=== PATIENT | male | born 1940 | race Caucasian/White ===

== ENCOUNTER → 2017-08-30 11:18 | Outpatient (CLI) | payer MEDICARE, SELFPAY ==
--- NOTE | 2017-08-30 11:30 | XR_ITS ---
XR chest 2V COMPARISON: PA and lateral chest 11/29/2007 HISTORY: Cough, suspect bronchitis TECHNIQUE: PA and lateral chest FINDINGS: The lung zuniga are well expanded. There is a unusual opacity somewhat obscuring and overlying the left pulmonary artery and left heart border which was not seen on the previous chest film. There are subtle ill-defined nodular densities along the inferior left hilar region. The peripheral left lung field is clear and right lung field is clear. Overall cardiac size is normal. There are degenerative changes lower thoracic spine. IMPRESSION: Curious opacity left hilar region and partially silhouetting the left heart border which was not seen previously likely representing post inflammatory scarring. However suggest a follow-up CT scan the chest for better overall evaluation since there are no intervening chest films from 2007 until the current chest film
== END ==
PROVIDERS: PCP Family Medicine; Visit Provider Nurse Practitioner Family
DX: J40 Bronchitis, not specified as acute or chronic (principal)
CPT/HCPCS: 71046

== ENCOUNTER → 2017-09-09 09:45 | Outpatient (CLI) | payer MEDICARE, SELFPAY ==
[2017-09-09 10:14] LABS: Blood Urea Nitrogen 30 mg/dL (7-18); Estimated Glomerular Filt Rate 45 ml/min (>60); GFR (African American) 55 ML/MIN (>60)
--- NOTE | 2017-09-09 10:39 | CT_ITS ---
CT chest w con HISTORY: Cough, abnormal chest x-ray ITS.REASON: ABNORMAL CXR ORDERING PHYSICIAN: Obi Pop MD PATIENT AGE: 77 years TECHNIQUE: Axial images obtained following the administration of 75 mL of Isovue 370 . Sagittal, and coronal reformatted images are also generated and reviewed. All CT scans at the facility use one or more dose reduction, viz: automated exposure control; ma/kV adjustment per patient size (including targeted exams where dose is matched to indication; i.e. head); or iterative reconstruction technique. COMPARISON: 08/30/2017 FINDINGS: There is a left hilar mass causing obstruction/occlusion of the left upper lobe bronchus with left upper lobe collapse. It is difficult to distinguish the definite margins of the mass due to the collapsed peripheral lung. The mass is felt to measure at least 5 x 4 cm extending from the left hilum is superiorly and anteriorly. There is compensatory hyperexpansion of the left lower lobe. There are a few small areas tunnel lymph nodes. No adenopathy however apparent. No evidence of aortic aneurysm or dissection. Pulmonary arteries are not well opacified. There are coronary artery calcifications. Heart size is normal without evidence of pericardial effusion. There is hyperinflation with attenuation of peripheral pulmonary vessels consistent with obstructive chronic bronchitis There is an irregular opacity in the right apex that measures 3 cm transverse and 1 cm AP with a superior extension measuring 2 x 1.2 cm. This is flat-like in nature and may represent postinflammatory fibrotic change. Cannot exclude the possibility of neoplasm. There are no previous chest CTs available for comparison. A calcified granuloma is present in the right middle lobe. There are patchy centrilobular densities in both lower lobes with a tree in bud pattern consistent with pneumonia. Endobronchial spread of neoplasm would be an additional consideration. There is trace left effusion. Upper abdominal images show small hiatal hernia. There are degenerative changes in the thoracic spine. No bony destructive process identified. IMPRESSION: 1. 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 This is not amenable to percutaneous biopsy. Bronchoscopy suggested for further evaluation 2. Irregular opacity in the right apex which may be due to postinflammatory fibrotic change. Cannot exclude neoplasm. PET/CT may be of further value. 3. Patchy centrilobular densities in both lower lobes which may be due to pneumonia. Endobronchial spread of neoplasm is included in the differential diagnosis. Follow-up recommended
--- NOTE | 2017-09-09 10:58 | HMH.ITSHM ---
LEVOTHYROXINE, HYOSEYBMINE, NEXIUM, PROPRANOL, VITAMINE D, ANORO
== END ==
PROVIDERS: Nurse Practitioner Family; Family Provider Family Medicine; PCP Family Medicine; Visit Provider Family Medicine
DX: R91.8 Other nonspecific abnormal finding of lung field (principal)
CPT/HCPCS: 36415; 71260; 82565; 84520; Q9967

== ENCOUNTER → 2017-10-07 14:19 | Outpatient (CLI) | payer MEDICARE, SELFPAY ==
[2017-10-07 15:15] VITALS: PULSE 88
== END ==
PROVIDERS: Family Provider Family Medicine; PCP Family Medicine; Visit Provider Family Medicine
DX: J44.9 Chronic obstructive pulmonary disease, unspecified (principal); D38.1 Neoplasm of uncertain behavior of trachea, bronchus and lung
CPT/HCPCS: 94060; 94640; 94726; 94729

== ENCOUNTER 2018-03-02 10:50 | Outpatient (CLI) | payer MEDICARE, SELFPAY ==
[2018-03-02 12:15] VITALS: BP 109/64; PULSE 62; RESP 18; TEMP 36.2; O2SAT 98
[2018-03-02 12:30] VITALS: BP 116/64; PULSE 62; RESP 18
[2018-03-02 12:45] VITALS: BP 106/64; PULSE 60; RESP 18
[2018-03-02 13:00] VITALS: BP 104/61; PULSE 60; RESP 18
[2018-03-02 13:15] VITALS: BP 106/59; PULSE 55; RESP 18
[2018-03-02 13:30] VITALS: BP 123/63; PULSE 61; RESP 18
== END 2018-03-02 13:15 | disposition home or self-care (01) ==
LOC: INF 10:57
PROVIDERS: Visit Provider Internal Medicine Medical Oncology
DX: Z51.11 Encounter for antineoplastic chemotherapy (principal); C34.90 Malignant neoplasm of unspecified part of unspecified bronchus or lung
CPT/HCPCS: 96413; C9492

== ENCOUNTER 2018-03-17 11:06 | Outpatient (CLI) | payer MEDICARE, SELFPAY ==
[2018-03-17] VITALS (7 sets, daily range): BP systolic 104–122; BP diastolic 64–82; PULSE 60–66; RESP 18–20; TEMP 36.7; O2SAT 97
== END 2018-03-17 13:10 | disposition home or self-care (01) ==
LOC: INF 11:06
PROVIDERS: Visit Provider Internal Medicine Medical Oncology
DX: Z51.11 Encounter for antineoplastic chemotherapy (principal); C34.90 Malignant neoplasm of unspecified part of unspecified bronchus or lung
CPT/HCPCS: 96413; C9492

== ENCOUNTER 2018-04-01 08:55 | Outpatient (CLI) | payer MEDICARE, SELFPAY ==
[2018-04-01 09:36] VITALS: BP 124/62; PULSE 68; RESP 20; TEMP 36.9; O2SAT 96
[2018-04-01 10:00] VITALS: BP 110/70; PULSE 68; RESP 20; TEMP 36.7; O2SAT 95
[2018-04-01 10:40] VITALS: BP 112/74; PULSE 68; RESP 20; TEMP 36.9; O2SAT 95
== END 2018-04-01 10:40 | disposition home or self-care (01) ==
LOC: INF 08:55
PROVIDERS: Visit Provider Internal Medicine Medical Oncology
DX: Z51.11 Encounter for antineoplastic chemotherapy (principal); C34.92 Malignant neoplasm of unspecified part of left bronchus or lung; Z87.891 Personal history of nicotine dependence
CPT/HCPCS: 96413; C9492

== ENCOUNTER → 2018-04-13 08:41 | Outpatient (CLI) | payer MEDICARE, SELFPAY ==
--- NOTE | 2018-04-13 08:47 | CT_ITS ---
CT chest w con HISTORY: ITS.REASON: LUNG CA follow-up ORDERING PHYSICIAN: Tyrone Gan MD PhD PATIENT AGE: 78 years COMPARISON: CT chest 09/09/2017 Technique: Axial images obtained. Sagittal and coronal reformatted images are also generated and reviewed. All CT scans at the facility use one or more dose reduction, viz: automated exposure control, ma/kV adjustment per patient size (including targeted exams where dose is matched to indication, i.e. head), or iterative reconstruction technique. FINDINGS: . The left hilar mass overall is smaller as seen on coronal views. (The stretched left upper lobe vein seen on coronal 44, nicely reflects the region of the previously larger left hilar mass. Although height of left hilar mass is only slightly decreased there is been marked decrease in overall volume on these coronal images,. Previously it measured over 4 cm transverse & now measuring less than than 2 cm transverse.) This left hilar mass & pathology previously gave rise to complete collapse of the left upper lobe & obstructed the left upper lobe bronchus on the August 2017 exam.. We now see significant reexpansion of the L UL. Soft tissue Density persist superior/anterior to the left morgan and perihilar region with air bronchograms now passing through this region, but we do see air within the previously obstructed bronchus with patent bronchi reexpanding majority the left upper lobe. There is still significant density perihilar region towards left upper lobe and mainly extending down towards the anterior segments. Mild elevation major fissure persist particularly anteriorly due to the volume loss. On today's study there is progressive soft tissue density seen at posterior & inferior aspect left morgan, & leading towards LLL. With this Additional soft tissue density is now seen posterior to the left morgan & surrounding left infrahilar region today, and yielding additional central air bronchograms as they are seen extending towards left lower lobe through this additional soft tissue density. This does use some additional volume loss of the left infrahilar region. Some of the changes could be post radiation in nature. Will require follow-up This Nonspecific soft tissue mass and atelectasis centrally, perihilar region is associated with some peripheral stranding extending peripherally posterior and lateral at left midlung,.. There is also a more evident evident left pleural effusion. Small moderate-sized but clearly larger. The apical pleural scarring is seen on left appears unchanged. The density at the right apex is stable 3 cm x 1 cm and likely reflects scarring given its flat linear nature. An relatively stable appearance. Mediastinum. The mass at the left morgan extends towards the base of the left morgan. There are some moderate-sized nodes throughout the mediastinum. A slightly larger nodes subcarinal region measures up to 14 x x 20 mm height and has not changed significantly. Other scattered moderate-sized nodes mediastinum appear similar Underlying emphysematous changes. Osseous structures appear stable again noting a stable mild wedge compression fracture mid T-spine. No focal osseous lesions. No obvious supraclavicular adenopathy. Minimal wispy fluid about the heart extends anteriorly along great vessels at the insertion pericardium. Stable Uppermost abdomen. Adrenals appear stable normal size. Fatty changes in liver but no focal lesions. Spleen upper normal size. Other could be some borderline thickening of the esophagus particularly at its midportion here at the level of the left morgan. Correlation required clinically... Patient undergoing radiation therapy. IMPRESSION 1. The previously identified left hilar mass has decreased in size since August 2017. ... Improvement at left Upper
--- NOTE | 2018-04-13 09:38 | CT_ITS ---
CT abdomen pelvis w con INDICATION: ITS.REASON: LUNG CANCER.. Follow-up ORDERING PHYSICIAN: Tyrone Gan MD PhD PATIENT AGE: 78 years COMPARISON: CT abdomen pelvis from September 11, [address] chest which included the upper abdomen from 04/13/2018, 09/09/2017 . TECHNIQUE: A 75 cc Isovue-370 administered IV with helical scanning through the chest and then subsequently abdomen/pelvis surgical Axial images obtained with sagittal and coronal reformats. All CT scans at the facility use one or more dose reduction, viz: automated exposure control, ma/kV adjustment per patient size (including targeted exams where dose is matched to indication, i.e. head), or iterative reconstruction technique. FINDINGS: . LUNG BASES.. Discussed on CT chest from today. Again note left pleural effusion at left posterior sulcus.. Small pericardial effusion most evident inferior to the right heart these images. /ABDOMEN/PELVIS: Liver appears satisfactory. No focal lesions. Gallbladder unremarkable no calcified gallstones. No biliary ductal dilatation. Pancreas satisfactory and unremarkable. No lesions.. Spleen upper normal size. Adrenals. Unchanged since previous study.. Satisfactory AORTA.. Interval placement of aorto bi- iliac endograft since previous CT study 09/11/2016. It begins just below the level of SMA & inferior aspect of the renal arteries. This Endograft appears satisfactory/intact with no leakage. The proximal & distal anastomosis of appear satisfactory/&, unremarkable..The lumen of endograft filled with contrast. Concentric low-density thrombus surrounding the endograft otherwise. The Outside diameter of the underlying aortic aneurysm measuring 6.5 cm x 5 cm diameter which is very slightly less than it did on previous August 2016 study.. Certainly no larger. ThisAAA aneurysm extends for a 6.7 cm length ending just above the aortic bifurcation.. TRACT . Kidneys. Normal enhancement. Only Minimal calcified plaque at origin of both renal arteries. Ureters unremarkable. Pelvis.: Upper normal wall thickness at bladder. Prostate Moderate size measuring 5.1 cm transverse diameter. GI TRACT... No bowel dilatation nor obstruction. Large bowel. Scattered diverticuli most evident at the descending colon with tissue at sigmoid colon. No diverticulitis . Upper normal wall thickness sigmoid colon most likely reflecting lack of distention.. Minimal stool throughout entire colon. Small bowel. Unremarkable. Terminal ileum unremarkable. Appendix normal. .. Laxity at inguinal ring bilaterally. Fat-containing Left Inguinal Hernia is again noted & stable since 2017. Coronal image 29, 30 No bowel loops here. No inflammation. Associated Small fat-containing umbilical hernia Bones. No evidence of metastatic disease. Lumbar spondylosis and degenerative changes. Multilevel degenerative disc space narrowing with posterior hypertrophic ridging & Multilevel facet arthropathy. Combination of these features features are most pronounced at L4/5 & L3/4 & L2/3 yielding notable spinal stenosis along with prominent bilateral foraminal encroachment most pronounced on the right at each levels. L5/S1 with exuberant facet hypertrophy right greater than left with right foraminal and recess stenosis./ . IMPRESSION 1 . . No evidence of metastatic disease to the abdomen or pelvis. No acute findings 2.... Interval placement of aorto bi iliac endograft since August 2016.-Satisfactory appearance . This was placed to address the generous abdominal aortic aneurysm. 3. Left pleural effusion with small pericardial effusion again noted.-As were seen on CT chest from today
--- NOTE | 2018-04-13 09:46 | HMH.ITSHM ---
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 [] LEVOTHYROXIN PROPANOL NEXIUM VITAMIN D VENTOLIN ANORA
== END ==
PROVIDERS: PCP Family Medicine; Visit Provider Internal Medicine Hematology & Oncology
DX: C34.92 Malignant neoplasm of unspecified part of left bronchus or lung (principal)
CPT/HCPCS: 71260; 74177; Q9967

== ENCOUNTER 2018-04-14 11:41 | Outpatient (CLI) | payer MEDICARE, SELFPAY ==
[2018-04-14 12:25] VITALS: BP 124/74; PULSE 61; RESP 18; O2SAT 97
[2018-04-14 12:40] VITALS: BP 120/75; PULSE 60; RESP 18
[2018-04-14 12:55] VITALS: BP 121/67; PULSE 59; RESP 18
[2018-04-14 13:10] VITALS: BP 114/60; PULSE 60; RESP 18
[2018-04-14 13:25] VITALS: BP 117/60; PULSE 60; RESP 18
== END 2018-04-14 13:45 | disposition home or self-care (01) ==
LOC: INF 11:41
PROVIDERS: Visit Provider Internal Medicine Medical Oncology
DX: Z51.11 Encounter for antineoplastic chemotherapy (principal); C34.92 Malignant neoplasm of unspecified part of left bronchus or lung
CPT/HCPCS: 96413; C9492

== ENCOUNTER 2018-04-28 08:40 | Outpatient (CLI) | payer MEDICARE, SELFPAY ==
[2018-04-28 09:40] VITALS: BP 128/69; PULSE 68; RESP 18; TEMP 36.1; O2SAT 98
[2018-04-28 09:55] VITALS: BP 122/69; PULSE 64; RESP 18
[2018-04-28 10:10] VITALS: BP 126/70; PULSE 61; RESP 18
[2018-04-28 10:25] VITALS: BP 128/72; PULSE 62; RESP 18
[2018-04-28 10:40] VITALS: BP 119/72; PULSE 62; RESP 18
== END 2018-04-28 11:00 | disposition home or self-care (01) ==
LOC: INF 08:47
PROVIDERS: Visit Provider Internal Medicine Medical Oncology
DX: Z51.11 Encounter for antineoplastic chemotherapy (principal); C34.92 Malignant neoplasm of unspecified part of left bronchus or lung
CPT/HCPCS: 96413; C9492

== ENCOUNTER 2018-05-12 09:20 | Outpatient (CLI) | payer MEDICARE, SELFPAY ==
[2018-05-12] VITALS (7 sets, daily range): BP systolic 122–132; BP diastolic 69–83; PULSE 65–86; RESP 18; TEMP 36.8; O2SAT 98
== END 2018-05-12 11:52 | disposition home or self-care (01) ==
LOC: INF 09:35
PROVIDERS: Visit Provider Internal Medicine Medical Oncology
DX: Z51.11 Encounter for antineoplastic chemotherapy (principal); C34.92 Malignant neoplasm of unspecified part of left bronchus or lung
CPT/HCPCS: 96413; 96415; J9173

== ENCOUNTER 2018-05-25 08:35 | Outpatient (CLI) | payer MEDICARE, SELFPAY ==
[2018-05-25 09:25] VITALS: BP 114/67; PULSE 69; RESP 18; O2SAT 94
[2018-05-25 09:40] VITALS: BP 123/78; PULSE 66; RESP 18
[2018-05-25 09:55] VITALS: BP 127/62; PULSE 65; RESP 18
[2018-05-25 10:10] VITALS: BP 112/63; PULSE 62; RESP 18
[2018-05-25 10:25] VITALS: BP 123/63; PULSE 64; RESP 18
== END 2018-05-25 10:40 | disposition home or self-care (01) ==
LOC: INF 08:53
PROVIDERS: Visit Provider Internal Medicine Medical Oncology
DX: Z51.11 Encounter for antineoplastic chemotherapy (principal); C34.92 Malignant neoplasm of unspecified part of left bronchus or lung
CPT/HCPCS: 96413; J9173

== ENCOUNTER 2018-06-09 10:45 | Outpatient (CLI) | payer MEDICARE, SELFPAY ==
[2018-06-09 12:10] VITALS: BP 140/74; PULSE 70; RESP 18; TEMP 36.7; O2SAT 98
[2018-06-09 12:40] VITALS: BP 133/77; PULSE 69; RESP 18; O2SAT 97
[2018-06-09 13:10] VITALS: BP 142/76; PULSE 71; RESP 18; O2SAT 97
[2018-06-09 13:35] VITALS: BP 136/71; PULSE 68; RESP 18; O2SAT 98
== END 2018-06-09 13:35 | disposition home or self-care (01) ==
LOC: INF 13:04
PROVIDERS: Visit Provider Internal Medicine Medical Oncology
DX: Z51.11 Encounter for antineoplastic chemotherapy (principal); C34.92 Malignant neoplasm of unspecified part of left bronchus or lung
CPT/HCPCS: 96413; J9173

== ENCOUNTER 2018-06-23 11:30 | Outpatient (CLI) | payer MEDICARE, SELFPAY ==
[2018-06-23] VITALS (7 sets, daily range): BP systolic 105–128; BP diastolic 58–75; PULSE 58–64; RESP 18; O2SAT 95
== END 2018-06-23 13:40 | disposition home or self-care (01) ==
LOC: INF 11:39
PROVIDERS: Visit Provider Internal Medicine Medical Oncology
DX: Z51.11 Encounter for antineoplastic chemotherapy (principal); C34.92 Malignant neoplasm of unspecified part of left bronchus or lung
CPT/HCPCS: 96413; 96415; J9173

== ENCOUNTER 2018-07-06 08:50 | Outpatient (CLI) | payer MEDICARE, SELFPAY ==
[2018-07-06 09:29] VITALS: BP 99/71; PULSE 87; RESP 18; TEMP 36.6; O2SAT 100
[2018-07-06 09:59] VITALS: BP 114/70; PULSE 84; RESP 18; O2SAT 99
[2018-07-06 10:29] VITALS: BP 120/61; PULSE 64; RESP 18; O2SAT 99
[2018-07-06 10:50] VITALS: BP 119/74; PULSE 68; RESP 18; O2SAT 98
== END 2018-07-06 10:50 | disposition home or self-care (01) ==
LOC: INF 08:50
PROVIDERS: Visit Provider Internal Medicine Medical Oncology
DX: Z51.11 Encounter for antineoplastic chemotherapy (principal); C34.92 Malignant neoplasm of unspecified part of left bronchus or lung; Z87.891 Personal history of nicotine dependence
CPT/HCPCS: 96413; J9173

== ENCOUNTER → 2018-07-08 09:18 | Outpatient (CLI) | payer MEDICARE, SELFPAY ==
--- NOTE | 2018-07-08 09:22 | FL_ITS ---
EXAM: Barium swallow/esophagram. INDICATION: Difficulty swallowing ITS.REASON: mass- difficulty swallowing ORDERING PHYSICIAN: Lopez Gomez MD PATIENT AGE: 78 years COMPARISON: None TECHNIQUE: In the upright position the patient was observed to swallow barium in both the AP and lateral view. The cervical esophagus was examined under fluoroscopy with images obtained. The patient was then placed prone in the right anterior oblique position and was observed to swallow barium with Valsalva technique . FLUOROSCOPY TIME: 57 seconds FINDINGS: There was no evidence of aspiration. There was normal peristalsis. No filling defects or mucosal abnormalities. No masses or strictures. Prominent posterior vertebral body osteophytes are present at C4 C5, C6 67 and C7-T1 causing indentation upon the posterior aspect of the esophagus during swallowing. The esophagus is midline. No hiatal hernia apparent. IMPRESSION: 1. Prominent cervical osteophytes causing some indentation upon the posterior aspect of the cervical esophagus. 2. Otherwise negative barium swallow
== END ==
PROVIDERS: PCP Family Medicine; Visit Provider Otolaryngology
DX: R13.10 Dysphagia, unspecified (principal); R22.2 Localized swelling, mass and lump, trunk
CPT/HCPCS: 74220

== ENCOUNTER 2018-07-20 10:00 | Outpatient (RCR) | payer MEDICARE, SELFPAY ==
--- NOTE | 2018-07-08 13:32 | HMH.PTOPEV ---
PT Outpatient Evaluation Rehab PT Outpatient Evaluation Start: 07/08/18 13:19 Freq: Status: Active Protocol: Document 07/08/18 13:21 SULAIMAN (Rec: 07/08/18 13:32 SULAIMAN [id number]) Electronically Signed By Gustavo Miller, PT 07/08/18 13:21 Outpatient Therapy Subjective History Subjective History Pt reports insidious onset L sided neck pain beginning ~ 1 week ago. Pt reports recent CT scan of cervical spine has revealed OA, and DDD. Pt reports 'it feels like my head is too heavy for my neck'. Pt reports origin of localized s /s is just to L of midline CT junction area. Chief Complaint Pain Stiff Symptom Type Ache Sharp Dull Symptoms Relieved By Rest/Positioning Symptoms Aggravated By Physical Activity Lifting Prior Functional Limitations None Current Functional Limitations Reaching Lifting Housework Driving Sleeping Symptom Description Constant but Variable Level of pain today (0-10) 7 Pain scale - at its best (0-10) 6 Pain scale - at its worst (0-10) 9 Cervical Eval Palpation Cervical Muscles L CT Junction L Upper Trapezius Cervical/Thoracic Palpation Findings Tenderness Posture Head/C-Spine Posture Sitting Position Flexed Head/C-Spine Posture Standing Position Flexed Flexibility Deficits Upper Trapezius Muscle Length (L) Moderate Tightness Scalene Group Muscle Length (L) Mild Tightness Passive Joint Mobility Cervical PIVM Dec: R OA L OA R AA L AA R C2/3 L C2/3 R C3/4 L C3/4 R C4/5 L C4/5 R C5/6 L C5/6 R C6/7 L C6/7 R C7/T1 L C7/T1 AROM Cervical Spine Extension Active Range of 0-5 Motion (degrees) Cervical Spine Flexion A
== END 2018-07-20 10:05 | disposition home or self-care (01) ==
LOC: PT 10:00
PROVIDERS: Visit Provider Family Medicine
DX: M50.90 Cervical disc disorder, unspecified, unspecified cervical region (principal); M53.82 Other specified dorsopathies, cervical region
CPT/HCPCS: 97010; 97012; 97014; 97035; 97110; 97163; G0283

== ENCOUNTER 2018-07-21 10:20 | Outpatient (CLI) | payer MEDICARE, SELFPAY ==
[2018-07-21 11:00] VITALS: BP 102/61; PULSE 72; RESP 18; TEMP 35.8; O2SAT 91
[2018-07-21 11:15] VITALS: BP 104/64; PULSE 59; RESP 18
[2018-07-21 11:30] VITALS: BP 103/68; PULSE 64; RESP 18
[2018-07-21 11:45] VITALS: BP 110/66; PULSE 58; RESP 16
[2018-07-21 12:00] VITALS: BP 106/62; PULSE 58; RESP 16
== END 2018-07-21 12:20 | disposition home or self-care (01) ==
LOC: INF 10:20
PROVIDERS: Visit Provider Internal Medicine Medical Oncology
DX: Z51.11 Encounter for antineoplastic chemotherapy (principal); C34.92 Malignant neoplasm of unspecified part of left bronchus or lung; Z87.891 Personal history of nicotine dependence
CPT/HCPCS: 96413; J9173

== ENCOUNTER → 2018-07-22 08:27 | Outpatient (CLI) | payer MEDICARE, SELFPAY | PROVIDERS: PCP Family Medicine; Visit Provider Ophthalmology | DX: H53.2 Diplopia (principal) ==

== ENCOUNTER 2018-08-12 13:44 | Observation (INO) ==
--- NOTE | 2018-08-12 14:03 | Emergency Department Note ---
ED Disposition Clinical Impression: Diplopia Headache Qualifiers: Headache type: unspecified Headache chronicity pattern: acute headache Intractability: not intractable Qualified Code(s): R51 - Headache Disposition: Admitted as Observation Condition on Discharge: Fair Referrals: Gabriel Dickey MD [Primary Care Provider] - - Critical Care Critical Care Time: No Attestation: On 08/12/18, the high probability of a clinically significant, sudden or life threatening deterioration of the following system(s) required my full and direct attention, intervention and personal management. The time I documented below is in addition to time spent performing reported procedures but includes the following listed in this critical care notation. Medical Decision Making - Marcos Inquiry Pt receiving controlled substance: No Vital Signs: 08/12/18 13:55 08/12/18 14:28 08/12/18 14:55 Temperature 97.4 F L Temperature Source Oral Pulse Rate [Left Radial] 92 H 72 98 H Respiratory Rate 16 20 16 Blood Pressure [Right Arm] 147/86 H 144/85 H 167/101 H Blood Pressure Mean [Right Arm] 106 104 123 Blood Pressure Source [Right Arm] Automatic Cuff Automatic Cuff Blood Pressure Position [Right Arm] Sitting Sitting 02 Sat by Pulse Oximetry 98 98 97 Oxygen Delivery Method Room Air Room Air 08/12/18 15:30 Temperature Temperature Source Pulse Rate [Left Radial] 98 H Respiratory Rate 16 Blood Pressure [Right Arm] 150/100 H Blood Pressure Mean [Right Arm] 116 Blood Pressure Source [Right Arm] Automatic Cuff Blood Pressure Position [Right Arm] Sitting 02 Sat by Pulse Oximetry 98 Oxygen Delivery Method Room Air - Lab Data Lab Results 08/12/18 14:14: WBC 10.4, RBC 6.05, Hgb 16.6, Hct 48.2, MCV 79.8 L, MCH 27.5, MCHC 34.4, RDW 15.7, Plt Count 176, MPV 7.1 L, Neut % (Auto) 93.4 H, Lymph % (Auto) 5.1 L, [place] % (Auto) 1.3 L, Eos % (Auto) 0.1, Baso % (Auto) 0.1, Neut # (Auto) 9.7 H, Lymph # (Auto) 0.5 L, [place] # (Auto) 0.1, Eos # (Auto) 0.0, Baso # (Auto) 0.0, Total Counted 100, Neutrophils % (Manual) 94 H, Lymphocytes % (Manual) 4 L, Atypical Lymphs % 1.0, Monocytes % (Manual) 1 L, Platelet Estimate Normal 08/12/18 14:14: Sodium 137, Potassium 4.5, Chloride 99, Carbon Dioxide 30, Anion Gap 12.5, BUN 38 H, Creatinine 1.37 H, Estimated Creat Clear 46, Estimated GFR 50 L, Est GFR ( Amer) 61, Glucose 171 H, Calcium 10.4 H, Total Bilirubin 0.7, AST 21, ALT 36, Alkaline Phosphatase 53, Total Protein 6.6, Albumin 3.8, Globulin 2.8, Albumin/Globulin Ratio 1.4 08/12/18 14:14: TSH 5.11 H Result diagrams: 08/12/18 14:14 08/12/18 14:14 Orders (Tests/Meds): ED MEDICATIONS Generic Name Dose Route Start Last Admin Trade Name Freq PRN Reason Stop Dose Admin Sodium Chloride 10 ml 08/12/18 14:02 Saline Flush 10ml Syringe IV 09/11/18 14:01 NEEDED PRN Maintain IV Site Sodium Chloride 10 ml 08/12/18 14:02 Saline Flush 10ml Syringe IV 09/11/18 14:01 NEEDED PRN Maintain IV Site Discontinued Medications Generic Name Dose Route Start Last Admin Trade Name Freq PRN Reason Stop Dose Admin Dexamethasone Sodium Phosphate 4 mg 08/12/18 16:00 Decadron 4mg/Ml 1ml Vial IV 09/11/18 15:59 Q12H LEENA Morphine Sulfate 2 mg 08/12/18 14:53 08/12/18 15:00 Morphine 2mg/Ml Syringe IV 08/12/18 14:54 2 mg ONCE ONE Administration Ondansetron HCl 4 mg 08/12/18 14:53 08/12/18 15:00 Zofran 4mg/2ml Vial IV 08/12/18 14:54 4 mg ONCE ONE Administration - Radiology Data #1 Image(s): Chest Image Reviewed: Yes I have reviewed radiologist's interpretation IMPRESSION: No change in the left hilar mass with postobstructive changes with no acute finding Dictated By: Juliano Adams MD Signed By: <Electronically signed by Juliano Adams MD in [place]> 08/12/18 1442 - CT Data CT Scan: Head Time Received: 15:[address] Reviewed: Yes: I have viewed the radiologist's interpretation Preliminary Findings: Normal/NAD - ECG Data Tracing #1 EKG interpreted by Bernard Hughes MD: Rhythm: sinus Rate: [employer]: Left Ectopy: Premature atrial contractions Conduction: normal ST Segment Changes: none T Wave Changes: none Q Waves: Septal No evidence of acute ischemia or injury Baseline artifact present, but I consider the EKG adequate for accurate interpretation. Prior electrocardiagrams reviewed. No change from prior tracings. - Physician Consults Physician Consulted: Noble Time: 15:44 Reason -: Pt condition Comment/Response: Dr. Dickey states patient has been complaining of his head "feeling big" ever since he started having his neck problems. Use oxycodone and diazepam as needed for headaches. Follow-up in the office next week. Continue same dose of thyroid replacement. Medical Decision Narrative: 3:45 PM: Discussed Dr. Dickey's recommendations. Patient's tells me that he does not think he can go home. States whenever he sits up or stands up his head feels like it is "big" and his headache comes back. Discussed trying to go home and lay in bed in a darkened room and he tells me he just does not think he can do that. 3:51 PM: Discussed with Dr. Dickey again. Admit observation. Decadron 4 mg every 12 hours. Continue pain medication. 3:57 PM: Discussed plan with patient and . They state that the patient is already on steroids prescribed by his oncologist. He is on a taper. He is currently on 50 mg of prednisone per day. Therefore, will not administer Decadron. General Adult HPI - General Chief complaint: Weakness Stated complaint: dizzy, seeing double, head pain Time Seen by Provider: 08/12/18 14:10 Mode of Arrival: Ambulatory Limitations: No Limitations Description of Symptoms (Recalled from ER Triage Doc. by RN): to ed per pvt car with c/o generalized weakness, generalized headache, double vision, unsteady gait. starting today. pt states worse h/a he has ever had. pt denies any photophobia, n/v. - History of Present Illness HPI narrative: Complains of headache that began about 9:00 this morning. Started out as a frontal headache. Then feel like it is "big". States currently he does not have a headache. He took oxycodone at home for the headache, initially only got a little relief, but as noted denying headache now. States he is also felt unstable of gait and is having "a little vision problem". He has had intermittent diplopia for a couple of months. The diplopia is side by side (lat eral). He has been seen by ophthalmology. No cause was found. He has been referred to neuro-ophthalmology. He also has had problems swallowing for a couple of months and has been referred to a neurosurgeon because of bone spurs in his neck. He recently had an MRI of his brain and soft tissue neck, ordered by his radiation oncologist, because of the above-noted complaints. These were done on 08/09/18. Reported to be negative except for bone spurs in the neck, no cranial metastases. The patient has lung cancer diagnosed last October. He underwent chemotherapy, radiation therapy, and immunotherapy. He recently had to stop immunotherapy because of side effects. He also recently had his dose of thyroid medication increased. - Related Data Home Medications Medication Instructions Recorded Confirmed Levothyroxine Sodium 50 mcg PO DAILY 09/27/17 08/12/18 [Levothyroxine 50mcg (0.05mg) Tab] Propranolol HCl 40 mg PO DAILY 09/27/17 08/12/18 albuterol sulfate HFA 90 1 puff INHALATION Q6H PRN 02/17/18 08/12/18 mcg/actuation aerosol inhaler Naproxen Sodium [Aleve 220mg Cap] 220 mg PO DAILY 04/14/18 08/12/18 Oxycodone HCl [Oxycodone (IR) 10mg 10 mg PO NEEDED PRN 07/06/18 08/12/18 Tab] diazePAM [Valium 10mg tablet] 10 mg PO NEEDED PRN 07/06/18 08/12/18 Lansoprazole [Prevacid] 30 mg PO DAILY 07/21/18 08/12/18 Umeclidinium Brm/Vilanterol Tr 1 inh IH DAILY 07/21/18 08/12/18 [Anoro Ellipta 62.5-25 Mcg INH] Metoclopramide HCl [Reglan 5mg 5 mg PO BID 08/12/18 08/12/18 Tablet] Allergies Allergy/AdvReac Type Severity Reaction Status Date / Time No Known Allergies Allergy Verified 07/21/18 09:38 [facility] History - Hepatitis A Screen Drug use history?: No High risk sexual behaviors?: No History of sexually transmitted infection?: No Currently employed?: No Childcare worker?: No Do you have indoor plumbing?: Yes Do you have electricity?: Yes Attestation statement:: This patient has been screened for Hepatitis A risk factors. I have reviewed the patient's past medical history: Yes Medical History: Reports:: Chronic Obstructive Pulmonary Disease (COPD) Denies:: Diabetes Mellitus Type 1, Diabetes Mellitus Type 2 Other Medical History: Reports: Other Comment: hx lung cancer Other Surgeries: Yes: Coronary Stent Amputation: No Fractures: No - Social History Smoking Status: Former smoker Alcohol Intake: never Substance Use Type: denies use Occupational Status: employed Household Members: other - Psychiatric History Expresses thoughts of harming self/others: None Suicide Plan Description: No Plan Family Hx:: Hyperlipidemia, Hypertension ROS Obtained: Yes All systems reviewed & no additional complaints - Constitutional Constitutional: Denies fever(s) - Eyes Eyes: Reports diplopia - Cardiovascular Cardiovascular: Denies chest pain - Respiratory Respiratory: No dyspnea - Gastrointestinal Gastrointestingal: Reports: dysphagia - Musculoskeletal Musculoskeletal: Reports neck pain (Chronic) - Neurologic Neurologic: Reports unsteadiness, Reports headache(s) Physical Exam - General General appearance: alert, in no apparent distress - Head Head exam: atraumatic, normocephalic - Eye Eye exam: Present: PERRL, EOMI - ENT ENT exam: Present: normal exam, mucous membranes moist - Neck Neck exam: Present: normal inspection, trachea midline - Chest Chest inspection: Present: normal inspection, symmetric chest wall rise - Respiratory Respiratory exam: Present: normal lung sounds bilaterally. Absent: respiratory distress - Cardiovascular Cardiovascular exam: Present: regular rate, normal rhythm, normal heart sounds - Abdominal Exam Abdominal exam: Present: soft. Absent: distention, tenderness - Extremities Exam Extremities exam: Present: normal inspection, other (Normal peripheral pulses) - Neurological Exam Neurological exam: Present: alert, oriented X3, CN II-XII intact. Absent: motor sensory deficit - Psychiatric Psychiatric exam: Present: normal affect, normal mood - Skin Skin exam: Present: warm, dry
[2018-08-12 14:28] LABS: Basophils % 0.1 % (0.1-2.0); Eosinophils % 0.1 % (0.1-12.0); Hematocrit 48.2 % (42.0-52.0); Hemoglobin 16.6 g/dL (14.1-18.0); Lymphocytes # 0.5 K/mm3 (0.7-4.5); Lymphocytes % 5.1 % (10-50); Mean Corpuscular HGB Conc 34.4 g/dL (31.8-35.4); Mean Corpuscular Hemoglobin 27.5 pg (27.0-31.2); Mean Corpuscular Volume 79.8 fl (80-94); Mean Platelet Volume 7.1 fl (7.4-10.4); Monocytes # 0.1 K/mm3 (0.1-1.0); Monocytes % 1.3 % (1.7-9.3); Neutrophils # 9.7 K/mm3 (1.8-7.8); Neutrophils % 93.4 % (37.0-80.0); Platelet Count 176 K/mm3 (142-424); Red Blood Count 6.05 M/mm3 (4.60-6.20); Red Cell Distribution Width 15.7 % (11.5-17.5); White Blood Count 10.4 K/mm3 (4.8-10.8)
[2018-08-12 14:32] LABS: Albumin Level 3.8 gm/dL (3.4-5.0); Albumin/Globulin Ratio 1.4 (1.1-1.8); Anion Gap 12.5 mEq/L (5-15); Bilirubin,Total 0.7 mg/dL (0.2-1.0); Calcium 10.4 mg/dL (8.5-10.1); Globulin 2.8 gm/dl (1.3-3.2); Potassium 4.5 mmoL/L (3.5-5.1); Total Protein,Serum 6.6 gm/dL (6.4-8.2)
[2018-08-12 14:52] LABS: Lymphocytes % 4 % (10-50); Monocytes % 1 % (2-9); Neutrophils % 94 % (42-76); Total Cells Counted 100
--- NOTE | 2018-08-12 16:22 | History & Physical Report ---
*Admission Date: 08/12/18 <Tiffanie Medina - 08/12/18 16:22> *Chief complaint: headache, dizziness <Tiffanie Medina - 08/12/18 16:22> *History of present illness: Mr. Morris is a 78yo male with a history of lung cancer which was diagnosed in January 2018, esophageal reflux, COPD, and esophageal dysphasia who has complained of his head "feeling big" for the past month and a half. The patient began having neck pain in June with headaches. He was seen in the emergency room at that time and a CT scan of the C-spine was abnormal showing cervical disc disease and cervical spinal stenosis. Dr. Dickey started him on some diazepam as well as some dexamethasone. He then had physical therapy for his neck pain. He began having episodes of dysphasia and was sent to Dr. Gomez. He currently has an appointment with a neurosurgeon on Wednesday. He thought initially the headaches and the dizziness were a side effect from his immunotherapy that he was receiving for his lung cancer. His oncologist stopped the immunotherapy approximately a month ago, but his symptoms have continued. He states that he began with a frontal headache this morning around 10 AM. He presented to the ER when it was not better by 2 PM. He states the ER physician gave him some morphine and the headache itself improved, but he continued to feel like his head was "big" and he was dizzy upon standing. He had a head CT which showed nothing acute and Dr. Dickey and the ER physician felt he could be discharged home, however the patient did not think he could go home. He stated whenever he stood up his headache came back. He was therefore admitted for observation. The ER physician was going to start the patient on Decadron, however his stated he was already on steroids prescribed by his oncologist and was on a taper at 50 mg of prednisone per day, therefore Decadron was not administered. <Tiffanie Medina - 08/12/18 17:04> [facility] History I have reviewed the patient's past medical history: Yes <Tiffanie Medina - 08/12/18 17:04> Medical History: Reports:: Aneurysm (AAA with stent placement), Cancer (lung), Chronic Obstructive Pulmonary Disease (COPD), Gastroesophageal Reflux Disease(GERD) Denies:: Diabetes Mellitus Type 1, Diabetes Mellitus Type 2 <Tiffanie Medina 08/12/18 17:04> *Have you ever received a pneumonia vaccine?: Yes <Tiffanie Medina 08/12/18 16:22> Other Medical History: Reports: Other <Tiffanie Medina 08/12/18 16:22> Other Surgeries: Yes: Coronary Stent, Other (AAA - stent, Cyst removed right arm, Chemo for Lung CA) <Tiffanie Medina 08/12/18 17:04> Amputation: No <Tiffanie Medina 08/12/18 16:22> Fractures: No <Tiffanie Medina 08/12/18 16:22> - *Social History Smoking Status: Former smoker <Tiffanie Medina 08/12/18 16:22> Alcohol Intake: never <Tiffanie Medina 08/12/18 16:22> Substance Use Type: denies use <Tiffanie Medina 08/12/18 16:22> *Occupational Status:: employed <Tiffanie Medina 08/12/18 16:22> Household Members: other <Tiffanie Medina 08/12/18 16:22> *Travel in the last 8 weeks: None <Tiffanie Medina 08/12/18 16:22> - Psychiatric History Expresses thoughts of harming self/others: None <Tiffanie Medina 08/12/18 16:22> Suicide Plan Description: No Plan <Tiffanie Medina 08/12/18 16:22> Family Hx:: Hyperlipidemia, Hypertension <Tiffanie Medina 08/12/18 16:22> Review of Systems - Constitutional Reports fatigue, Reports weakness <Tiffanie Medina 08/12/18 17:04> - Eyes Reports double vision, Denies blurry vision <Tiffanie Medina 08/12/18 17:04> - ENT Reports dry mouth, Denies nasal congestion, Denies sore throat <Tiffanie Medina 08/12/18 17:04> - *Cardiovascular Reports shortness of breath, Denies chest pain, Denies rapid, pounding, or irregular heartbeat <Tiffanie Medina 08/12/18 17:04> - *Respiratory Reports shortness of breath, Denies cough <Tiffanie Medina 08/12/18 17:04> - *Gastrointestinal Reports constipation, Reports nausea, Denies abdominal pain, Denies loose stools, Denies vomiting <Tiffanie Medina - 08/12/18 17:04> - *Genitourinary Denies difficulty urinating, Denies painful urination <Tiffanie Medina - 08/12/18 17:04> - *Musculoskeletal Reports neck pain, Denies joint pain <Tiffanie Medina 08/12/18 17:04> - *Neurologic Reports unsteadiness, Reports headache(s), Reports dizziness, Reports weakness <Tiffanie Medina - 08/12/18 17:04> Meds Home Medications Medication Instructions Recorded Confirmed Type Levothyroxine Sodium 100 mcg PO DAILY 09/27/17 08/12/18 History [Levothyroxine 50mcg (0.05mg) Tab] Propranolol HCl 40 mg PO DAILY 09/27/17 08/12/18 History albuterol sulfate HFA 90 1 puff INHALATION Q6H PRN 02/17/18 08/12/18 History mcg/actuation aerosol inhaler Oxycodone HCl [Oxycodone (IR) 10mg 10 mg PO NEEDED PRN 07/06/18 08/12/18 History Tab] diazePAM [Valium 10mg tablet] 4 mg PO NEEDED PRN 07/06/18 08/12/18 History Lansoprazole [Prevacid] 30 mg PO DAILY 07/21/18 08/12/18 History Umeclidinium Brm/Vilanterol Tr 1 inh IH DAILY 07/21/18 08/12/18 History [Anoro Ellipta 62.5-25 Mcg INH] Metoclopramide HCl [Reglan 5mg 5 mg PO BID 08/12/18 08/12/18 History Tablet] Polyethylene Glycol 3350 [Miralax 17 gm PO DAILY 08/12/18 08/12/18 History 17gm Packet] predniSONE [Deltasone 20mg 20 mg PO DIRECTED 08/12/18 08/12/18 History tablet] <Gabriel Dickey - 08/12/18 18:18> Allergies Allergy/AdvReac Type Severity Reaction Status Date / Time No Known Allergies Allergy Verified 07/21/18 09:38 <Gabriel Dickey - 08/12/18 18:18> Exam Vital signs and Labs for Last 24 Hours: Temp Pulse Resp BP Pulse Ox 97.6 F 79 17 139/93 H 973 H 08/12/18 17:42 08/12/18 17:42 08/12/18 17:42 08/12/18 17:42 08/12/18 17:42 Laboratory Results - last 24 hr 08/12/18 14:14: WBC 10.4, RBC 6.05, Hgb 16.6, Hct 48.2, MCV 79.8 L, MCH 27.5, MCHC 34.4, RDW 15.7, Plt Count 176, MPV 7.1 L, Neut % (Auto) 93.4 H, Lymph % (Auto) 5.1 L, [place] % (Auto) 1.3 L, Eos % (Auto) 0.1, Baso % (Auto) 0.1, Neut # (Auto) 9.7 H, Lymph # (Auto) 0.5 L, [place] # (Auto) 0.1, Eos # (Auto) 0.0, Baso # (Auto) 0.0, Total Counted 100, Neutrophils % (Manual) 94 H, Lymphocytes % (Manual) 4 L, Atypical Lymphs % 1.0, Monocytes % (Manual) 1 L, Platelet Estimate Normal 08/12/18 14:14: Sodium 137, Potassium 4.5, Chloride 99, Carbon Dioxide 30, Anion Gap 12.5, BUN 38 H, Creatinine 1.37 H, Estimated Creat Clear 46, Estimated GFR 50 L, Est GFR ( Amer) 61, Glucose 171 H, Calcium 10.4 H, Total Bilirubin 0.7, AST 21, ALT 36, Alkaline Phosphatase 53, Total Protein 6.6, Albumin 3.8, Globulin 2.8, Albumin/Globulin Ratio 1.4 08/12/18 14:14: TSH 5.11 H <Gabriel Dickey - 08/12/18 18:18> Temp Pulse Resp BP Pulse Ox 97.4 F L 98 H 16 150/100 H 98 08/12/18 13:55 08/12/18 15:30 08/12/18 15:30 08/12/18 15:30 08/12/18 15:30 Laboratory Results - last 24 hr 08/12/18 14:14: WBC 10.4, RBC 6.05, Hgb 16.6, Hct 48.2, MCV 79.8 L, MCH 27.5, MCHC 34.4, RDW 15.7, Plt Count 176, MPV 7.1 L, Neut % (Auto) 93.4 H, Lymph % (Auto) 5.1 L, [place] % (Auto) 1.3 L, Eos % (Auto) 0.1, Baso % (Auto) 0.1, Neut # (Auto) 9.7 H, Lymph # (Auto) 0.5 L, [place] # (Auto) 0.1, Eos # (Auto) 0.0, Baso # (Auto) 0.0, Total Counted 100, Neutrophils % (Manual) 94 H, Lymphocytes % (Manual) 4 L, Atypical Lymphs % 1.0, Monocytes % (Manual) 1 L, Platelet Estimate Normal 08/12/18 14:14: Sodium 137, Potassium 4.5, Chloride 99, Carbon Dioxide 30, Anion Gap 12.5, BUN 38 H, Creatinine 1.37 H, Estimated Creat Clear 46, Estimated GFR 50 L, Est GFR ( Amer) 61, Glucose 171 H, Calcium 10.4 H, Total Bilirubin 0.7, AST 21, ALT 36, Alkaline Phosphatase 53, Total Protein 6.6, Albumin 3.8, Globulin 2.8, Albumin/Globulin Ratio 1.4 08/12/18 14:14: TSH 5.11 H <Tiffanie Medina - 08/12/18 16:22> I & O for Last 24 hours: Intake & Output 08/09/18 08/10/18 08/11/18 08/12/18 23:59 23:59 23:59 23:59 Intake Total 360 / 360 Balance 360 / 360 Weight 163 lb 4 oz <Gabriel Dickey - 08/12/18 18:18> Intake & Output 08/10/18 08/11/18 08/12/18 08/13/18 11:59 11:59 11:59 11:59 Weight 163 lb <Tiffanie Medina - 08/12/18 16:22> - Constitutional no acute distress <Tiffanie Medina - 08/12/18 17:04> - *Routine HEENT Exam Head: Present: normocephalic <Tiffanie Medina 08/12/18 17:04> Eye: Present: EOMI, PERRL [facility] 08/12/18 17:04> ENT: Present: mucous membranes dry [facility] 08/12/18 17:04> - *Routine Neck Exam Present: supple. Absent: lymphadenopathy <[facility] 08/12/18 17:04> - *Routine Respiratory Exam Present: wheezes (bilateral) [facility] 08/12/18 17:04> - *Routine Cardiovascular Exam Present: RRR, irregular rhythm <[facility] 08/12/18 17:04> - *Routine Abdominal Exam Present: soft, normoactive bowel sounds. Absent: tenderness <[facility] 08/12/18 17:04> - *Routine Extremities Exam Absent: cyanosis, clubbing, edema <[facility] 08/12/18 17:04> - *Routine Skin Exam Present: warm. Absent: rash <[facility] 08/12/18 17:04> - *Routine Neurological Exam Present: alert, oriented X3, CN II-XII intact. Absent: altered mental status <[facility] 08/12/18 17:04> H&P: Result - Impressions Head CT - normal CXR - no change in lung mass on the left <[facility] 08/12/18 17:04> Assessment and Plan (1) Headache Current visit: Yes Status: Acute Qualifiers: Headache type: unspecified Headache chronicity pattern: acute headache Intractability: not intractable Qualified Code(s): R51 - Headache Category: Medical Code(s): R51 - Headache (2) Diplopia Current visit: Yes Status: Acute Category: Medical Code(s): H53.2 - Diplopia (3) Degenerative disc disease, cervical Current visit: No Status: Chronic Category: Medical Code(s): M50.30 - Other cervical disc degeneration, unspecified cervical region (4) Dysphagia Current visit: No Status: Chronic Qualifiers: Dysphagia type: esophageal phase Qualified Code(s): R13.10 - Dysphagia, unspecified Category: Medical Code(s): R13.10 - Dysphagia, unspecified (5) Dyspnea Current visit: No Status: Chronic Category: Medical Code(s): R06.00 - Dyspnea, unspecified (6) Hx of cancer of lung Current visit: No Status: Acute Category: Medical Code(s): Z85.118 - Personal history of other malignant neoplasm of bronchus and lung (7) Hypothyroidism Current visit: No Status: Acute Category: Medical Code(s): E03.9 - Hypothyroidism, unspecified (8) Reflux esophagitis Current visit: No Status: Chronic Category: Medical Code(s): K21.0 - Gastro-esophageal reflux disease with esophagitis (9) Renal insufficiency Current visit: No Status: Acute Category: Medical Code(s): N28.9 - Disorder of kidney and ureter, unspecified (10) Hypertension Current visit: Yes Status: Chronic Category: Medical Code(s): I10 - Essential (primary) hypertension (11) Cardiac dysrhythmia Current visit: Yes Status: Acute Category: Medical Code(s): I49.9 - Cardiac arrhythmia, unspecified <Gabriel Dickey - 08/12/18 18:18> (1) Headache Current visit: Yes Status: Acute Qualifiers: Headache type: unspecified Headache chronicity pattern: acute headache Intractability: not intractable Qualified Code(s): R51 - Headache Category: Medical Code(s): R51 - Headache (2) Diplopia Current visit: Yes Status: Acute Category: Medical Code(s): H53.2 - Diplopia (3) Degenerative disc disease, cervical Current visit: No Status: Chronic Category: Medical Code(s): M50.30 - Other cervical disc degeneration, unspecified cervical region (4) Dysphagia Current visit: No Status: Chronic Qualifiers: Dysphagia type: esophageal phase Qualified Code(s): R13.10 - Dysphagia, unspecified Category: Medical Code(s): R13.10 - Dysphagia, unspecified (5) Dyspnea Current visit: No Status: Chronic Category: Medical Code(s): R06.00 - Dyspnea, unspecified (6) Hx of cancer of lung Current visit: No Status: Acute Category: Medical Code(s): Z85.118 - Personal history of other malignant neoplasm of bronchus and lung (7) Hypothyroidism Current visit: No Status: Acute Category: Medical Code(s): E03.9 - Hypothyroidism, unspecified (8) Reflux esophagitis Current visit: No Status: Chronic Category: Medical Code(s): K21.0 - Gastro-esophageal reflux disease with esophagitis (9) Renal insufficiency Current visit: No Status: Acute Category: Medical Code(s): N28.9 - Disorder of kidney and ureter, unspecified (10) Hypertension Current visit: Yes Status: Chronic Category: Medical Code(s): I10 - Essential (primary) hypertension (11) Cardiac dysrhythmia Current visit: Yes Status: Acute Category: Medical Code(s): I49.9 - Cardiac arrhythmia, unspecified <Tiffanie Medina - 08/12/18 16:24> - Assessment and plan all Dx Assessment and Plan for all problems:: Saw patient, agree with above note. <Gabriel Dickey - 08/12/18 18:18> Will start on IVF's d/t renal insufficiency. Will start on an increased dose of his propranolol for headache as well as hypertension. Will monitor overnight and place a rn cardiac cath due to cardiac dysrhythmia. Will also start on some of his home medications. <Tiffanie Medina - 08/12/18 17:04>
[2018-08-13 06:17] LABS: Basophils % 0.1 % (0.1-2.0); Lymphocytes % 13.6 % (10-50); Mean Corpuscular HGB Conc 33.4 g/dL (31.8-35.4); Monocytes # 0.5 K/mm3 (0.1-1.0)
[2018-08-13 06:34] LABS: Eosinophils % 0.3 % (0.1-12.0); Hematocrit 44.1 % (42.0-52.0); Lymphocytes # 1.2 K/mm3 (0.7-4.5); Mean Corpuscular Volume 80.8 fl (80-94); Mean Platelet Volume 7.1 fl (7.4-10.4); Neutrophils # 7.4 K/mm3 (1.8-7.8); Platelet Count 163 K/mm3 (142-424); Red Blood Count 5.45 M/mm3 (4.60-6.20); Red Cell Distribution Width 15.7 % (11.5-17.5); White Blood Count 9.1 K/mm3 (4.8-10.8)
[2018-08-13 06:38] LABS: Hemoglobin 14.7 g/dL (14.1-18.0)
[2018-08-13 06:43] LABS: Anion Gap 8.5 mEq/L (5-15); Calcium 9.5 mg/dL (8.5-10.1); Potassium 5.5 mmoL/L (3.5-5.1)
--- NOTE | 2018-08-13 07:11 | Progress Note ---
Internal Medicine - PN: Subj *Date: 08/13/18 *Time: 07:09 Interval history: Pt feels better today, less headache now. Exam Vital signs and Labs for Last 24 Hours: Temp Pulse Resp BP Pulse Ox 97.5 F L 55 L 57 H 115/78 97 08/13/18 04:00 08/13/18 06:38 08/13/18 04:00 08/13/18 04:00 08/13/18 06:38 Laboratory Results - last 24 hr 08/12/18 14:14: WBC 10.4, RBC 6.05, Hgb 16.6, Hct 48.2, MCV 79.8 L, MCH 27.5, MCHC 34.4, RDW 15.7, Plt Count 176, MPV 7.1 L, Neut % (Auto) 93.4 H, Lymph % (Auto) 5.1 L, [place] % (Auto) 1.3 L, Eos % (Auto) 0.1, Baso % (Auto) 0.1, Neut # (Auto) 9.7 H, Lymph # (Auto) 0.5 L, [place] # (Auto) 0.1, Eos # (Auto) 0.0, Baso # (Auto) 0.0, Total Counted 100, Neutrophils % (Manual) 94 H, Lymphocytes % (Manual) 4 L, Atypical Lymphs % 1.0, Monocytes % (Manual) 1 L, Platelet Estimate Normal 08/12/18 14:14: Sodium 137, Potassium 4.5, Chloride 99, Carbon Dioxide 30, Anion Gap 12.5, BUN 38 H, Creatinine 1.37 H, Estimated Creat Clear 46, Estimated GFR 50 L, Est GFR ( Amer) 61, Glucose 171 H, Calcium 10.4 H, Total Bilirubin 0.7, AST 21, ALT 36, Alkaline Phosphatase 53, Total Protein 6.6, Albumin 3.8, Globulin 2.8, Albumin/Globulin Ratio 1.4 08/12/18 14:14: TSH 5.11 H 08/13/18 05:40: WBC 9.1, RBC 5.45, Hgb 14.7 D, Hct 44.1, MCV 80.8, MCH 27.0, MCHC 33.4, RDW 15.7, Plt Count 163, MPV 7.1 L, Neut % (Auto) 81.0 H, Lymph % (Auto) 13.6, [place] % (Auto) 5.0, Eos % (Auto) 0.3, Baso % (Auto) 0.1, Neut # (Auto) 7.4, Lymph # (Auto) 1.2, [place] # (Auto) 0.5, Eos # (Auto) 0.0, Baso # (Auto) 0.0 08/13/18 05:40: Sodium 140, Potassium 5.5 H D, Chloride 103, Carbon Dioxide 34 H , Anion Gap 8.5, BUN 31 H, Creatinine 1.23, Estimated Creat Clear 52, Estimated GFR 57 L, Est GFR ( Amer) 69, Glucose 113 H D, Calcium 9.5 I & O for Last 24 hours: Intake & Output 08/10/18 08/11/18 08/12/18 08/13/18 23:59 23:59 23:59 23:59 Intake Total 360 / 360 1211 / 1211 Balance 360 / 360 1211 / 1211 Weight 163 lb 4 oz 163 lb 2 oz - Constitutional no acute distress - *Routine HEENT Exam Head: Present: normocephalic Eye: Present: EOMI ENT: Present: mucous membranes moist - *Routine Neck Exam Present: supple. Absent: lymphadenopathy - *Routine Respiratory Exam Comments: good air movement, few left upper coarse breath sounds - *Routine Cardiovascular Exam Present: RRR - *Routine Abdominal Exam Present: soft, normoactive bowel sounds. Absent: tenderness - *Routine Extremities Exam Absent: cyanosis, clubbing, edema - *Routine Skin Exam Present: warm. Absent: rash - *Routine Neurological Exam Present: alert, oriented X3 Assessment and Plan (1) Headache Current visit: Yes Status: Acute Qualifiers: Headache type: unspecified Headache chronicity pattern: acute headache Intractability: not intractable Qualified Code(s): R51 - Headache Category: Medical Code(s): R51 - Headache (2) Diplopia Current visit: Yes Status: Acute Category: Medical Code(s): H53.2 - Diplopia (3) Degenerative disc disease, cervical Current visit: No Status: Chronic Category: Medical Code(s): M50.30 - Other cervical disc degeneration, unspecified cervical region (4) Dysphagia Current visit: No Status: Chronic Qualifiers: Dysphagia type: esophageal phase Qualified Code(s): R13.10 - Dysphagia, unspecified Category: Medical Code(s): R13.10 - Dysphagia, unspecified (5) Dyspnea Current visit: No Status: Chronic Category: Medical Code(s): R06.00 - Dyspnea, unspecified (6) Hx of cancer of lung Current visit: No Status: Acute Category: Medical Code(s): Z85.118 - Personal history of other malignant neoplasm of bronchus and lung (7) Hypothyroidism Current visit: No Status: Acute Category: Medical Code(s): E03.9 - Hypothyroidism, unspecified (8) Reflux esophagitis Current visit: No Status: Chronic Category: Medical Code(s): K21.0 - Gastro-esophageal reflux disease with esophagitis (9) Renal insufficiency Current visit: No Status: Acute Category: Medical Code(s): N28.9 - Disorder of kidney and ureter, unspecified (10) Hypertension Current visit: Yes Status: Chronic Category: Medical Code(s): I10 - Essential (primary) hypertension (11) Cardiac dysrhythmia Current visit: Yes Status: Acute Category: Medical Code(s): I49.9 - Cardiac arrhythmia, unspecified - Assessment and plan all Dx Assessment and Plan for all problems:: Improving, will decrease IVF rate today.
--- NOTE | 2018-08-13 11:11 | Pharmacy Consult Notes ---
[facility] Pharmacy VTE Monitoring - Patient Demographics Admission date: 08/13/18 Report Date: 08/13/18 Time: 11:10 Allergies/Adverse Reactions: Patient Allergies No Known Allergies Allergy (Verified 07/21/18 09:38) Height: 1.83 m Weight: 73.992 kg Patient Problems: Current Active Problems Headache (Acute) Diplopia (Acute) Hypertension (Chronic) Cardiac dysrhythmia (Acute) - VTE Risk Labs: VTE Related Lab Results Hgb 14.7 g/dL (14.1-18.0) D 08/13/18 05:40 Hct 44.1 % (42.0-52.0) 08/13/18 05:40 Plt Count 163 K/mm3 (142-424) 08/13/18 05:40 BUN 31 mg/dL (7-18) H 08/13/18 05:40 Creatinine 1.23 mg/dL (0.70-1.30) 08/13/18 05:40 Estimated Creat Clear 52 mL/min (50-200) 08/13/18 05:40 Was VTE Risk Assessment Performed: Yes VTE Score: 5 VTE Risk Level: Low Risk - Prophylaxis Types of VTE Prophylaxis: TEDS Knee High (IESHA HOSE ORDERED)
[2018-08-14 06:21] LABS: Basophils % 0.1 % (0.1-2.0); Eosinophils % 0.2 % (0.1-12.0); Hematocrit 43.8 % (42.0-52.0); Hemoglobin 14.7 g/dL (14.1-18.0); Lymphocytes # 1.3 K/mm3 (0.7-4.5); Mean Corpuscular HGB Conc 33.6 g/dL (31.8-35.4); Mean Corpuscular Hemoglobin 27.2 pg (27.0-31.2); Mean Platelet Volume 6.8 fl (7.4-10.4); Monocytes # 0.4 K/mm3 (0.1-1.0); Monocytes % 5.1 % (1.7-9.3); Neutrophils # 6.9 K/mm3 (1.8-7.8); Neutrophils % 79.6 % (37.0-80.0); Platelet Count 145 K/mm3 (142-424); Red Blood Count 5.41 M/mm3 (4.60-6.20); Red Cell Distribution Width 15.8 % (11.5-17.5); White Blood Count 8.7 K/mm3 (4.8-10.8)
[2018-08-14 06:29] LABS: Anion Gap 7.4 mEq/L (5-15); Potassium 5.4 mmoL/L (3.5-5.1)
--- NOTE | 2018-08-14 09:37 | Progress Note ---
Internal Medicine - PN: Subj *Date: 08/14/18 *Time: 09:35 Interval history: Patient feels much better today, no headache now. He has been up walking in his room and wants to go home. Exam Vital signs and Labs for Last 24 Hours: Temp Pulse Resp BP Pulse Ox 98.2 F 62 17 118/68 93 L 08/14/18 08:00 08/14/18 08:00 08/14/18 08:00 08/14/18 08:00 08/14/18 08:00 Laboratory Results - last 24 hr 08/14/18 05:35: WBC 8.7, RBC 5.41, Hgb 14.7, Hct 43.8, MCV 81.0, MCH 27.2, MCHC 33.6, RDW 15.8, Plt Count 145, MPV 6.8 L, Neut % (Auto) 79.6, Lymph % (Auto) 15.0, [place] % (Auto) 5.1, Eos % (Auto) 0.2, Baso % (Auto) 0.1, Neut # (Auto) 6.9, Lymph # (Auto) 1.3, [place] # (Auto) 0.4, Eos # (Auto) 0.0, Baso # (Auto) 0.0 08/14/18 05:35: Sodium 140, Potassium 5.4 H, Chloride 104, Carbon Dioxide 34 H, Anion Gap 7.4, BUN 32 H, Creatinine 1.25, Estimated Creat Clear 51, Estimated GFR 56 L, Est GFR ( Amer) 68, Glucose 107 H, Calcium 10.0 I & O for Last 24 hours: Intake & Output 08/11/18 08/12/18 08/13/18 08/14/18 23:59 23:59 23:59 23:59 Intake Total 360 / 360 3548 / 3548 1449 / 1449 Output Total 200 / 200 Balance 360 / 360 3548 / 3548 1249 / 1249 Weight 163 lb 4 oz 163 lb 2 oz 162 lb - Constitutional no acute distress - *Routine HEENT Exam Head: Present: normocephalic Eye: Present: EOMI ENT: Present: mucous membranes moist - *Routine Neck Exam Present: supple. Absent: lymphadenopathy - *Routine Respiratory Exam Present: crackles (left upper, otherwise clear) - *Routine Cardiovascular Exam Present: RRR - *Routine Abdominal Exam Present: soft, normoactive bowel sounds. Absent: tenderness - *Routine Extremities Exam Absent: cyanosis, clubbing, edema - *Routine Skin Exam Present: warm. Absent: rash - *Routine Neurological Exam Present: alert, oriented X3 Assessment and Plan (1) Headache Current visit: Yes Status: Acute Qualifiers: Headache type: unspecified Headache chronicity pattern: acute headache Intractability: not intractable Qualified Code(s): R51 - Headache Category: Medical Code(s): R51 - Headache (2) Diplopia Current visit: Yes Status: Acute Category: Medical Code(s): H53.2 - Diplopia (3) Degenerative disc disease, cervical Current visit: No Status: Chronic Category: Medical Code(s): M50.30 - Other cervical disc degeneration, unspecified cervical region (4) Dysphagia Current visit: No Status: Chronic Qualifiers: Dysphagia type: esophageal phase Qualified Code(s): R13.10 - Dysphagia, unspecified Category: Medical Code(s): R13.10 - Dysphagia, unspecified (5) Dyspnea Current visit: No Status: Chronic Category: Medical Code(s): R06.00 - Dyspnea, unspecified (6) Hx of cancer of lung Current visit: No Status: Acute Category: Medical Code(s): Z85.118 - Personal history of other malignant neoplasm of bronchus and lung (7) Hypothyroidism Current visit: No Status: Acute Category: Medical Code(s): E03.9 - Hypothyroidism, unspecified (8) Reflux esophagitis Current visit: No Status: Chronic Category: Medical Code(s): K21.0 - Gastro-esophageal reflux disease with esophagitis (9) Renal insufficiency Current visit: No Status: Acute Category: Medical Code(s): N28.9 - Disorder of kidney and ureter, unspecified (10) Hypertension Current visit: Yes Status: Chronic Category: Medical Code(s): I10 - Essential (primary) hypertension (11) PAC (premature atrial contraction) Current visit: Yes Status: Acute Category: Medical Code(s): I49.1 - Atrial premature depolarization - Assessment and plan all Dx Assessment and Plan for all problems:: OK to discharge home today, will double home dose of Propranolol, office f/u in 1 week.
--- NOTE | 2018-08-15 22:14 | Discharge Summary ---
General - General Admission date:: 08/12/18 Discharge date: 08/14/18 HPI HPI: Mr. Morris is a 78yo male with a history of lung cancer which was diagnosed in January 2018, esophageal reflux, COPD, and esophageal dysphasia who has complained of his head "feeling big" for the past month and a half. The patient began having neck pain in June with headaches. He was seen in the emergency room at that time and a CT scan of the C-spine was abnormal showing cervical disc disease and cervical spinal stenosis. Dr. Dickey started him on some diazepam as well as some dexamethasone. He then had physical therapy for his neck pain. He began having episodes of dysphasia and was sent to Dr. Gomez. He currently has an appointment with a neurosurgeon on Wednesday. He thought initially the headaches and the dizziness were a side effect from his immu notherapy that he was receiving for his lung cancer. His oncologist stopped the immunotherapy approximately a month ago, but his symptoms have continued. He states that he began with a frontal headache this morning around 10 AM. He presented to the ER when it was not better by 2 PM. He states the ER physician gave him some morphine and the headache itself improved, but he continued to feel like his head was "big" and he was dizzy upon standing. He had a head CT which showed nothing acute and Dr. Dickey and the ER physician felt he could be discharged home, however the patient did not think he could go home. He stated whenever he stood up his headache came back. He was therefore admitted for observation. The ER physician was going to start the patient on Decadron, however his stated he was already on steroids prescribed by his oncologist and was on a taper at 50 mg of prednisone per day, therefore Decadron was not administered. Hospital Course Hospital Course: The patient had a head CT that was normal. His chest x-ray showed no change in the left hilar mass. He was started on IV fluids due to renal insufficiency and an increased dose of his propranolol for his headache as well as hypertension. 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 His headache did improve. His IV fluid rate was decreased. He was up and walking in his room and his headache completely resolved and he wanted to go home. His renal functions improved. He was stable to be discharged home on a double dose of propranolol. He will follow-up with Dr. Dickey in 1 week. Objective Vital signs: Temp Pulse Resp BP Pulse Ox 98.2 F 62 17 118/68 93 L 08/14/18 08:00 08/14/18 08:00 08/14/18 08:00 08/14/18 08:00 08/14/18 08:00 Narrative: - Constitutional no acute distress - *Routine HEENT Exam Head: Present: normocephalic Eye: Present: EOMI, PERRL ENT: Present: mucous membranes dry - *Routine Neck Exam Present: supple. Absent: lymphadenopathy - *Routine Respiratory Exam Present: wheezes (bilateral) - *Routine Cardiovascular Exam Present: RRR, irregular rhythm - *Routine Abdominal Exam Present: soft, normoactive bowel sounds. Absent: tenderness - *Routine Extremities Exam Absent: cyanosis, clubbing, edema - *Routine Skin Exam Present: warm. Absent: rash - *Routine Neurological Exam Present: alert, oriented X3, CN II-XII intact. Absent: altered mental status DS: Diagnosis - Discharge Diagnosis (1) Headache Status: Acute (2) Diplopia Status: Acute (3) Degenerative disc disease, cervical Status: Chronic (4) Dysphagia Status: Chronic (5) Dyspnea Status: Chronic (6) Hx of cancer of lung Status: Acute (7) Hypothyroidism Status: Acute (8) Reflux esophagitis Status: Chronic (9) Renal insufficiency Status: Acute (10) Hypertension Status: Chronic (11) PAC (premature atrial contraction) Status: Acute Discharge Plan - Patient Discharge Instructions ACTIVITY: Continue current activity DIET: continue same diet Patient Instructions: High Blood Pressure, DI for Headache - Follow up Plan Follow up with: Gabriel Dickey MD [Primary Care Provider] - 1 week Disposition: Home, Self-Nursing Home Medications: Home Medications Medication Instructions Recorded Confirmed Type Levothyroxine Sodium 100 mcg PO DAILY 09/27/17 08/12/18 History [Levothyroxine 50mcg (0.05mg) Tab] albuterol sulfate HFA 90 1 puff INHALATION Q6H PRN 02/17/18 08/12/18 History mcg/actuation aerosol inhaler Lansoprazole [Prevacid] 30 mg PO DAILY 07/21/18 08/12/18 History Umeclidinium Brm/Vilanterol Tr 1 inh IH DAILY 07/21/18 08/12/18 History [Anoro Ellipta 62.5-25 Mcg INH] Metoclopramide HCl [Reglan 5mg 5 mg PO BID 08/12/18 08/12/18 History Tablet] Polyethylene Glycol 3350 [Miralax 17 gm PO DAILY 08/12/18 08/12/18 History 17gm Packet] predniSONE [Deltasone 20mg 20 mg PO DIRECTED 08/12/18 08/12/18 History tablet] Oxycodone HCl/Acetaminophen 1 each PO Q6HP PRN 08/13/18 08/13/18 History [Percocet 7.5-325 mg Tablet] diazePAM [Valium 2mg tablet] 4 mg PO DAILYP PRN 08/13/18 08/13/18 History Propranolol HCl 40 mg PO BID #0 08/14/18 08/12/18 Rx Prescriptions/Medication Reconciliation: Continue albuterol sulfate HFA 90 mcg/actuation aerosol inhaler 1 puff INHALATION Q6H PRN PRN Reason: breathing Levothyroxine Sodium [Levothyroxine 50mcg (0.05mg) Tab] 100 mcg PO DAILY Lansoprazole [Prevacid] 30 mg PO DAILY Metoclopramide HCl [Reglan 5mg Tablet] 5 mg PO BID Oxycodone HCl/Acetaminophen [Percocet 7.5-325 mg Tablet] 1 each PO Q6HP PRN PRN Reason: PAIN Umeclidinium Brm/Vilanterol Tr [Anoro Ellipta 62.5-25 Mcg INH] 1 inh IH DAILY predniSONE [Deltasone 20mg tablet] 20 mg PO DIRECTED Polyethylene Glycol 3350 [Miralax 17gm Packet] 17 gm PO DAILY diazePAM [Valium 2mg tablet] 4 mg PO DAILYP PRN PRN Reason: Anxiety Changed Propranolol HCl 40 mg PO BID #0
== END 2018-08-14 10:19 | disposition home or self-care (01) ==
LOC: 2ND 13:44 → ER 13:44 → 2ND 17:22
PROVIDERS: ADMIT Family Medicine; ATTEND Family Medicine
DX: K21.0 Gastro-esophageal reflux disease with esophagitis; H53.2 Diplopia; C34.12 Malignant neoplasm of upper lobe, left bronchus or lung; N28.9 Disorder of kidney and ureter, unspecified; Z79.899 Other long term (current) drug therapy; E03.9 Hypothyroidism, unspecified; I10 Essential (primary) hypertension; R51 Headache
CPT/HCPCS: 36415; 70450; 71020; 71046; 80048; 80053; 84443; 85007; 85025; 93005; 94640; 96374; 96375; 99284; G0378; J2405

== ENCOUNTER 2018-10-19 10:00 | Outpatient (RCR) | payer MEDICARE, SELFPAY | END 2018-10-19 10:05 | disposition home or self-care (01) | LOC: PT 10:00 | PROVIDERS: Visit Provider Anesthesiology | DX: M79.10 Myalgia, unspecified site (principal) | CPT/HCPCS: 97010; 97014; 97035; 97110; 97140; 97163; G0283 ==

== ENCOUNTER → 2018-11-29 15:06 | Outpatient (CLI) | payer MEDICARE, SELFPAY ==
--- NOTE | 2018-11-29 15:11 | XR_ITS ---
XR chest 2V HISTORY: Shortness of breath ITS.REASON: SOB ORDERING PHYSICIAN: Gabriel Dickey MD PATIENT AGE: 78 years COMPARISON: 08/12/2018 FINDINGS: Persistent increased density is noted in the left suprahilar region and left perihilar region. Right lung remains clear. There are degenerative changes in the thoracic spine. IMPRESSION: Chronic perihilar changes on the left which appear stable and may be related to residual hilar mass or postobstructive changes.
== END ==
PROVIDERS: PCP Family Medicine; Visit Provider Family Medicine
DX: R06.02 Shortness of breath (principal)
CPT/HCPCS: 71046

== ENCOUNTER → 2018-12-21 14:06 | Outpatient (CLI) | payer MEDICARE, SELFPAY ==
--- NOTE | 2018-12-21 14:11 | XR_ITS ---
PROCEDURE: XR CHEST 2V CLINICAL HISTORY: SOB Shortness of air, wheezing, prior smoker COMPARISON: CXR2V XR chest 2V from 09/27/[address] chest w con from 07/07/2018 CXR1VP XR chest portable from 07/27/2018 CXR2V XR chest 2V from 08/12/2018 FINDINGS: The cardiomediastinal silhouette and pulmonary vascularity are within normal limits. COPD with hyperinflation. Chronic changes are present in the left upper lobe in the perihilar region. No lobar consolidation or collapse. No acute bony findings. No acute bony abnormalities. IMPRESSION: Chronic changes with COPD. No change with no acute finding Dictated by: Juliano dAams MD 12/21/2018 16:19 Signed by: <Electronically signed by Juliano Adams MD in [place]> 12/21/2018 16:19
== END ==
PROVIDERS: PCP Family Medicine; Visit Provider Physician Assistant
DX: R06.02 Shortness of breath (principal)
CPT/HCPCS: 71046

== ENCOUNTER → 2019-12-05 13:32 | Outpatient (POV) | payer MEDICARE, SELFPAY | PROVIDERS: PCP Family Medicine; Visit Provider Dermatology | DX: Z00.00 Encounter for general adult medical examination without abnormal findings (principal) ==

== ENCOUNTER 2020-05-09 18:45 | Observation (INO) | payer MEDICARE, SELFPAY ==
[2020-05-09] VITALS (17 sets, daily range): BP systolic 99–179; BP diastolic 59–119; PULSE 53–73; RESP 15–18; TEMP 36.6–36.9; O2SAT 65–100; BMI 24.7; BMI 28.1; BMI 25.1
--- NOTE | 2020-05-09 | IR_ITS ---
APPROVED REPORT Patient Location: Emergent Wire Threader: SALAZAR Kenyon RT (R) PROCEDURES Left heart catheterization Left ventriculogram Selective coronary angiogram Drug-eluting stent deployment to the proximal mid and distal LAD in a contiguous manner Drug-eluting stent deployment to the proximal circumflex artery Drug-eluting stent deployment to the first obtuse marginal artery INDICATION Acute anterolateral ST elevation myocardial infarction, Coronary artery disease Informed consent was obtained prior to the procedure. COMPLICATIONS NONE Estimated Blood Loss: LESS THAN 10 ML TECHNIQUE One percent lidocaine used to anesthetize the right anterior aspect of the wrist. The right radial artery was accessed via the Seldinger technique. A 6 Omani sheath was placed in the right radial artery. 2.5 mg of verapamil, 800 mcg of nitroglycerin, 1mg Lidocaine and 5000 U Heparin were given through the arterial sheath. The Poppa catheter was also used to perform left heart catheterization, left ventriculogram and selective coronary angiogram. Therapeutic heparin was administered with a therapeutic ACT. A Choice PT extra-support wire was placed into the LAD and a 2.5 x 26 mm resolute walter stent was deployed at 20 ajay reducing the stenosis to 0%. A 3 mm x 15 mm resolute Walter stent was then placed in the proximal LAD overlapping the first stent deployed at 20 ajay. SANDRA II flow was present at the beginning of the procedure with SANDRA-3 flow at the end of the procedure the wire was pulled back and then placed in the circumflex artery where a 2.5 x 26 mm resolute Walter stent was placed in the first obtuse marginal artery and deployed at 16 ajay. An additional 3 mm x 15 mm resolute Melcroft stent was then deployed at 20 ajay in the proximal circumflex artery at 20 ajay. The stent overlapped the stent in the obtuse marginal artery. The wire was then pulled back and placed into the LAD where a 2 mm x 15 mm resolute walter stent was then deployed in the distal LAD at 15 ajay. After achieving excellent angiographic results the balloon was brought back and deployed at 24 ajay in between the 2-5 and 2 mm stent. The apparatus was removed the sheath was removed good hemostasis was achieved using TR banding patient was transferred to the postop putting in stable condition ANGIOGRAPHIC RESULTS The left main artery Has an ostial 30 to 40% stenosis The left anterior descending artery Has a proximal tubular 80% stenosis which extends into the mid segment with she has an 80 to 90% stenosis. The distal LAD then has sequential 80 to 90% stenoses The circumflex artery The circumflex artery is a nondominant yet still large vessel with a proximal 50 to 60% stenosis. An 80% stenosis is present in a large first obtuse marginal artery The right coronary artery Is probably dominant and proximally occluded the distal vessel fills via [id number] collaterals The COPELAND ventriculogram reveals Preserved at 50% The left ventricular end-diastolic pressure 20 mmHg IMPRESSION Critical three-vessel coronary disease as described above which includes a chronically occluded probably dominant right coronary Successful stenting the proximal to mid LAD in a noncontiguous manner as described above critical disease reduced to 0% with 3 drug-eluting stents Successful stenting of the proximal to mid circumflex artery with stenting of the first obtuse marginal artery severe to critical disease reduced to 0% with 1 drug-eluting stent Preserved ejection fraction Elevated LVEDP PLAN 1. Brilinta and aspirin 2. LDL less than 55 3. Cardiac rehabilitation 4. Avoidance of tobacco products 5. Echocardiogram in the morning 6. Supportive care for next
--- NOTE | 2020-05-09 18:43 | ECG_ITS ---
APPROVED REPORT Exam: Resting ECG HR:72 bpm ECG Measurements Heart Rate 72 AXES DC 212 P 101 QRSd 84 QRS -33 QT 408 T 39 QTc 446 Conclusion Sinus rhythm with 1st degree AV block with occasional premature ventricular complexes and fusion complexes Left axis deviation Inferior infarct, age undetermined Anteroseptal infarct, possibly acute Lateral injury pattern ACUTE [place] Abnormal ECG Electronically signed by : Robinson Valera, 05/10/2020 15:20:54
--- NOTE | 2020-05-09 18:47 | XR_ITS ---
PROCEDURE: XR CHEST PORTABLE CLINICAL HISTORY: CHEST PAIN COMPARISON: CT CHESTW CT chest w con from 07/07/2018 CR CXR1VP XR chest portable from 07/27/2018 CR CXR2V XR chest 2V from 08/12/2018 CR XR CHEST 2V from 12/21/2018 FINDINGS: Mild cardiomegaly without failure. There is increased density right apex which may be related to overlapping bony structures. Upright PA and lateral chest may confirm. No lobar consolidation or collapse. No acute bony abnormalities. IMPRESSION: No definite acute finding. Increased density right apex which may be due to overlapping bony structures and may be confirmed with follow-up Dictated by: Juliano Adams MD 05/10/2020 05:38 Juliano Adams MD in [place] 05/10/2020 05:38
--- NOTE | 2020-05-09 18:50 | HMH.EDGENADL ---
ED Disposition Clinical Impression: Elevated blood pressure reading with diagnosis of hypertension ST elevation [place] (STEMI) Qualifiers: Involved coronary artery: unspecified coronary artery Qualified Code(s): I21.3 - ST elevation (STEMI) myocardial infarction of unspecified site Disposition: Admitted As Inpatient Condition on Discharge: Serious - Critical Care Critical Care Time: Yes Attestation: On , the high probability of a clinically significant, sudden or life threatening deterioration of the following system(s) required my full and direct attention, intervention and personal management. The time I documented below is in addition to time spent performing reported procedures but includes the following listed in this critical care notation. Total Critical Care Time: 20 Vital system(s) involved:: Circulatory Failure My critical care processes included: Assessment & monitoring of V/S, Initial and Re-exams, Data Review/Interpretation, Coordinating Care, Medication Orders and management, Documentation Medical Decision Making - Marcos Inquiry Pt receiving controlled substance: No Vital Signs: 05/09/20 19:00 05/09/20 19:06 Pulse Rate [Radial] 68 Blood Pressure [Right Arm] 179/105 H 152/83 H Blood Pressure Mean [Right Arm] 129 106 Blood Pressure Position [Right Arm] Sitting Sitting - Lab Data Lab Results 05/09/20 18:50: WBC 7.9, RBC 6.20, Hgb 17.2, Hct 50.2, MCV 80.9, MCH 27.7, MCHC 34.3, RDW 14.6, Plt Count 206, MPV 7.7, Neut % (Auto) 65.7, Lymph % (Auto) 25.6, [place] % (Auto) 5.6, Eos % (Auto) 2.1, Baso % (Auto) 1.0, Neut # (Auto) 5.2, Lymph # (Auto) 2.0, [place] # (Auto) 0.4, Eos # (Auto) 0.2, Baso # (Auto) 0.1 05/09/20 18:50: Troponin I 0.09 H 05/09/20 18:50: Sodium 139, Potassium 4.1, Chloride 99, Carbon Dioxide 34 H, Anion Gap 10.1, BUN 27 H, Creatinine 1.80 H, Estimated Creat Clear 37, Estimated GFR 36 L, Est GFR ( Amer) 44 L, Glucose 118 H, Calcium 9.8 Result diagrams: 05/09/20 18:50 05/09/20 18:50 Orders (Tests/Meds): ED MEDICATIONS Generic Name Dose Route Start Last Admin Trade Name Cadence PRN Reason Stop Dose Admin Fentanyl Citrate 25 mcg 05/09/20 19:07 Fentanyl 100mcg/2ml Vial IV 05/10/20 19:07 Q3MINP PRN Moderate to Severe Pain Fentanyl Citrate 50 mcg 05/09/20 19:07 Fentanyl 100mcg/2ml Vial IV 05/10/20 19:07 Q3MINP PRN Moderate to Severe Pain Flumazenil 0.2 mg 05/09/20 19:07 Flumazenil 0.1mg/Ml 5ml Vial IV 05/09/20 23:00 NEEDED PRN Sedation Heparin Sodium (Porcine) 10,000 unit 05/09/20 19:07 Heparin 1,000 Units/Ml 10ml Vial ([place]) IV 05/09/20 23:07 NEEDED PRN Emergency Box Equipment Monitor Phototypesetting Heparin Sodium/Sodium Chloride 3,000 unit 05/09/20 19:07 Heparin 1,000 Units/500ml Ns ([place]) IV 05/09/20 19:08 ONCE ONE Sodium Chloride 1,000 mls @ 999 mls/hr 05/09/20 19:00 05/09/20 18:57 Sod Chlor 0.9% 1000ml Bag IV 05/09/20 20:00 999 mls/hr .Q1H1M LEENA Administration Sodium Chloride 1,000 mls @ 25 mls/hr 05/09/20 19:15 Sod Chlor 0.9% 1000ml Bag IV 05/10/20 19:07 .Q25H LEENA Lidocaine HCl 20 ml 05/09/20 19:07 Lidocaine 1% 5ml Pf Vial IJ 05/09/20 19:08 ONCE ONE Lidocaine HCl 20 ml 05/09/20 19:07 Lidocaine 1% 10ml Mdv IJ 05/09/20 19:08 ONCE ONE Midazolam HCl 1 mg 05/09/20 19:07 Midazolam 2mg/2ml Vial IV 05/10/20 19:07 Q3MINP PRN Sedation Midazolam HCl 1 mg 05/09/20 19:07 Midazolam Hcl 1mg/1ml 5ml Vial IV 05/10/20 19:07 Q3MINP PRN Sedation Naloxone HCl 0.4 mg 05/09/20 19:07 Naloxone 0.4mg/Ml Vial IV 05/10/20 19:07 Q5MINP PRN Decreased Respirations Nitroglycerin 800 mcg 05/09/20 19:07 Nitroglycerin 800mcg/8ml Syr ([place]) IV 05/10/20 19:07 NEEDED PRN Emergency Box Equipment Monitor Phototypesetting Verapamil HCl 2.5 mg 05/09/20 19:07 Verapamil 2.5mg/Ml 2ml Vial IV 05/09/20 19:08 ONCE ONE Discontinued Medication
--- NOTE | 2020-05-09 18:57 | PC.NURSE ---
PT WITH YELLOW COLOR WATCH, GIVEN TO PT'S
--- NOTE | 2020-05-09 19:00 | PC.NURSE ---
Dr Hughes speaking with Dr Pop
[2020-05-09 19:03] LABS: Basophils # 0.1 K/mm3 (0-0.2); Eosinophils # 0.2 K/mm3 (0.0-0.4); Eosinophils % 2.1 % (0.1-12.0); Hematocrit 50.2 % (42.0-52.0); Hemoglobin 17.2 g/dL (14.1-18.0); Lymphocytes % 25.6 % (10-50); Mean Corpuscular HGB Conc 34.3 g/dL (31.8-35.4); Mean Corpuscular Hemoglobin 27.7 pg (27.0-31.2); Mean Corpuscular Volume 80.9 fl (80-94); Mean Platelet Volume 7.7 fl (7.4-10.4); Monocytes # 0.4 K/mm3 (0.1-1.0); Monocytes % 5.6 % (1.7-9.3); Neutrophils # 5.2 K/mm3 (1.8-7.8); Neutrophils % 65.7 % (37.0-80.0); Platelet Count 206 K/mm3 (142-424); Red Cell Distribution Width 14.6 % (11.5-17.5); White Blood Count 7.9 K/mm3 (4.8-10.8)
--- NOTE | 2020-05-09 19:08 | PC.NURSE ---
1845- STEMI called overhead at this time\ 1846- MD speaking with Dr. Jacobson and picture of EKG sent to Dr. Clark Pt medicated per Dr. Jacobson orders, 2nd IV established, Groin shaved, pt placed on zoll monitor with pads on.
[2020-05-09 19:09] LABS: Chloride 99 mmol/L (98-107); Sodium 139 mmol/L (136-145)
[2020-05-09 19:10] LABS: Potassium 4.1 mmoL/L (3.5-5.1)
[2020-05-09 19:13] LABS: Anion Gap 10.1 mEq/L (5-15); Blood Urea Nitrogen 27 mg/dl (9-20); Calcium 9.8 mg/dl (8.4-10.2); Carbon Dioxide 34 mmol/L (22.0-30.0); Creatinine Clearance Estimated 37 mL/min (50-200); Estimated Glomerular Filt Rate 36 ml/min (>60); GFR (African American) 44 ML/MIN (>60); Glucose 118 mg/dl (74-100)
--- NOTE | 2020-05-09 19:15 | PC.NURSE ---
Pt going to labor/excavator with SILVIA Iraheta
[2020-05-09 19:25] LABS: Troponin I 0.09 ng/ml (0.00-0.034)
[2020-05-09 19:33] LABS: Coronavirus 19 IgG Antibody Negative (Negative); Coronavirus 19 IgM Antibody Negative (Negative)
[2020-05-09 20:59] LABS: CATHL Activated Clotting Time > 400 SEC (74-125)
[2020-05-09 21:00] LABS: CATHL Activated Clotting Time 386 SEC (74-125)
--- NOTE | 2020-05-09 21:28 | PC.NURSE ---
patient up to floor via stretcher.
--- NOTE | 2020-05-09 22:25 | PC.NURSE ---
2ml of air removed from right radial band. No s/s of bleeding noted at this time.
--- NOTE | 2020-05-09 22:35 | PC.NURSE ---
Pt daughter called to check on him, gave a status update with patient's permission.
--- NOTE | 2020-05-09 22:49 | PC.NURSE ---
2245 - pt started bleeding from right radial cath site. 2ml of air added back to the radial band.
--- NOTE | 2020-05-09 23:23 | PC.NURSE ---
2300 - attempted to let 2ml of air back out of band, site still bleeding. 2ml of air added back. Will continue to monitor.
--- NOTE | 2020-05-09 23:24 | PC.NURSE ---
2315 - 2ml of air let out of radial band, total air remaining is 12ml of air. site noted to be slightly bruised.
--- NOTE | 2020-05-09 23:59 | PC.NURSE ---
Addendum entered by Shira Manzano RN 05/10/20 00:49: 10 ml of air remaining Original Note: 2345 - 2ml of air let out of radial band 2355 - still no bleeding noted
[2020-05-10] VITALS (18 sets, daily range): BP systolic 88–140; BP diastolic 58–91; PULSE 58–90; RESP 15–23; TEMP 36.4–37.1; O2SAT 89–99; BMI 25.2
--- NOTE | 2020-05-10 00:18 | PC.NURSE ---
0015 - 2ml of air removed from radial band. 8ml of air remaining. no s/s of bleeding at this time,
--- NOTE | 2020-05-10 00:48 | PC.NURSE ---
0030 - 2ml of air let out of radial band. 6ml of air remaining. no s\s of bleeding noted.
--- NOTE | 2020-05-10 01:04 | PC.NURSE ---
0100 - 2ml of air let out of radial band, 4ml of air left
--- NOTE | 2020-05-10 02:06 | PC.NURSE ---
0130 - 2ml of air let out of radial band, 2ml of air remaining.
--- NOTE | 2020-05-10 02:06 | PC.NURSE ---
0200 - final 2ml of air let out of radial band. Band removed, small bruising noted. Pulse strong. Tegaderm and 2x2 gauze dressing applied to right radial site. N s/s of bleeding noted at this time, will continue to monitor. Pt tolerated well.
--- NOTE | 2020-05-10 04:23 | PC.NURSE ---
Pt has not slept well this shift. He has been anxious, and restless. Has been medicated per mar with Lortab and Morphine for chest discomfort, states it just feels tight in his chest. Radial band removed this shift with minimal bleeding after initial attempt to deflate it. Dressing is in tact at this time, with no s/s of bleeding. Slight edema noted to right wrist/hand, extremity elevated on a pillow. Radial Pulses + and equal. Bilateral hands cold, good cap refill. Pt had had oxygen on intermittently t/o the night d/t medication administration, and some slight wheezing. Wheezing has improved, pt currently on room air. No bm this shift, has been voiding per urinal. VSS. Will continue to monitor.
--- NOTE | 2020-05-10 07:35 | HMH.CNCARD ---
History of Present Illness Consult date: 05/10/20 Consult reason: chest pain Chief complaint: STEMI Additional Medical History:: 1. History of tobacco use, discontinued 20 years ago A. COPD with chronic inhaler use B. History of left lung cancer, s/p radiation and immunotherapy. No surgery. 2. Familial tremor, treated with propranolol 3. History of abdominal aortic aneurysm, status post repair, [place], [place] approximately 2017 4. Hypertension 5. STEMI, 05/09/2020 A. [facility], ANGIOGRAPHIC RESULTS The left main artery Has an ostial 30 to 40% stenosis The left anterior descending artery Has a proximal tubular 80% stenosis which extends into the mid segment with she has an 80 to 90% stenosis. The distal LAD then has sequential 80 to 90% stenoses The circumflex artery The circumflex artery is a nondominant yet still large vessel with a proximal 50 to 60% stenosis. An 80% stenosis is present in a large first obtuse marginal artery The right coronary artery Is probably dominant and proximally occluded the distal vessel fills via [id number] collaterals The COP[place]AND ventriculogram reveals Preserved at 50% The left ventricular end-diastolic pressure 20 mmHg IMPRESSION Critical three-vessel coronary disease as described above which includes a chronically occluded probably dominant right coronary Successful stenting the proximal to mid LAD in a noncontiguous manner as described above critical disease reduced to 0% with 3 drug-eluting stents Successful stenting of the proximal to mid circumflex artery with stenting of the first obtuse marginal artery severe to critical disease reduced to 0% with 1 drug-eluting stent Preserved ejection fraction Elevated LVEDP History of present illness: 80-year-old white male presented to the emergency department for 1 hour of chest pain that started while at rest. Symptoms radiated into the left arm. Upon admission to the ER EKG revealed evidence of lateral ST elevation [place] and patient was taken urgently to the cardiac Database Report Writer. He underwent coronary stenting of both the LAD and circumflex artery with notation of chronic RCA occlusion. Ventricular ejection fraction noted to be normal with mildly elevated end-diastolic pressure. This morning patient states his chest discomfort has resolved. He does note some mild full sensation about every 10th breath goes away with continued breathing. [facility] History Medical History: Reports:: Aneurysm (AAA with stent placement), Cancer (hx of Lung CA), Chronic Obstructive Pulmonary Disease (COPD), Gastroesophageal Reflux Disease(GERD) Denies:: Diabetes Mellitus Type 1, Diabetes Mellitus Type 2, MRSA *Have you ever received a pneumonia vaccine?: No *Have you received a flu vaccine this season?: No Other Medical History: Reports: Thyroid Disease, Other Other Surgeries: Yes: Coronary Stent, Other (AAA - stent, Cyst removed right arm, Chemo for Lung CA) Amputation: No Fractures: No - *Social History Smoking Status: Former smoker Alcohol Intake: never Substance Use Type: denies use *Occupational Status:: retired Housing: house Household Members: spouse *Travel in the last 8 weeks: None Family Hx:: Hyperlipidemia, Hypertension Meds Home Medications Medication Instructions Recorded Confirmed Type albuterol sulfate 90 mcg/actuation 2 puff INHALATION QIDP PRN 02/17/18 05/10/20 History aerosol inhaler Metoclopramide HCl [Reglan 5mg 5 mg PO ACHS 08/12/18 05/10/20 History Tablet] polyethylene glycoL 3350 [Miralax 17 gm PO DAILY 08/12/18 05/10/20 History 17gm Packet] Oxycodone HCl/Acetaminophen 1 each PO Q6HP PRN 08/13/18 05/10/20 History [Percocet 7.5-325 mg Tablet] Cholecalciferol (Vitamin D3) 1,000 unit PO DAILY 05/10/20 05/10/20 History [Vitamin D3 1,000 Unit Cap] Esomeprazole Magnesium [Nexium] 20 mg PO DAILY 05/10/20 05/10/20 History Fluticasone/Umeclidin/Vilanter
--- NOTE | 2020-05-10 07:45 | CA_ITS ---
APPROVED REPORT EXAM: Comprehensive 2D, Doppler, and color-flow Echocardiogram Map Clerk: Lavinia Huizar CRT Ht: 5 ft 10 in Wt: 180lbs BSA: 2.00 BP: 140/76 mmHg Indications: STEMI,COPD,AAA REPAIR,GERD,CKD,EX SMOKER,HX LUNG CA,HTN,HLD 2D Dimensions LVOT 2.02 cm (M/F) 1.5-2.5 M-Mode Dimensions RVDd 2.35 cm (0.9-2.6) LA Diam 3.13 cm (1.9-4.0) LVDd 5.03 cm (3.5-5.7) Ao Diam 3.75 cm (2.0-3.7) LVDs 3.67 cm (3.5-5.7) IVSd 0.75 cm (0.6-1.1) PWd 0.84 cm (0.6-1.1) EF (Teich) 48.30% FS 24.30% EDV (Teich) 110.20 mL ESV (Teich) 57.00 mL LV Diastology E Decel Time 153.00 (160-240 msec) E/A Ratio 0.5 MED E' 5.10 (< 7 cm/sec) E'/MED E' Ratio 7.71 (>14) LAT E' 5.70 (<10 cm/sec) E/LAT E' Ratio 6.89 (>14) Mitral Valve MV E Max Rod. 39.00 (40-130 cm/s) MV A Velocity 80.00 (40-130 cm/s) E/A Ratio 0.49 MV Decel. Time 153.00 (160-240 ms) MV PHT 45.00 ms Pulmonary Valve PV Peak Velocity 60.00 (50-150 cm/s) Tricuspid Valve TR P. Velocity 273.00 cm/s RAP Estimate 10.00 mmHg RVSP 39.80 mmHg Left Ventricle Left atrium is mildly enlarged, left ventricle is normal size, mild concentric left ventricular hypertrophy, visually estimated ejection fraction 30%, there is marked hypokinesis involving mid to distal septum, anterior, anterior apical and apical wall. Grade 1 diastolic dysfunction seen without tissue Doppler evidence of raise left atrial pressure. Right Ventricle Right atrium and right ventricle are normal size and contractility. Aortic Valve Aortic valve is thickened and calcified leaflet chordae display good mobility, there is no aortic stenosis or aortic insufficiency. Mitral Valve Mitral valve leaflets are minimally thickened, there is mild mitral regurgitation. Tricuspid Valve Tricuspid valve is grossly normal, there is mild tricuspid regurgitation, calculated right ventricular systolic pressure is 39 mmHg. systolic pressure. Pulmonic Valve Pulmonic valve is minimally thickened and fibrosed, there is no pulmonic stenosis, there is mild pulmonic insufficiency. Great Vessels Aortic root is normal size. Pericardium Trivial pericardial effusion noted Conclusion 1. Mildly enlarged left atrium, normal left ventricular size, mild concentric left ventricular hypertrophy, visually estimated ejection fraction 30% with segmental wall motion abnormality described above, grade 1 diastolic dysfunction seen without tissue Doppler evidence of raise left atrial pressure. 2. Mild mitral and tricuspid regurgitation, calculated right ventricular systolic pressure 39 mmHg. 3. Trivial pericardial effusion noted. Electronically signed by : Torrey Carpenter, 05/10/2020 12:35:08
--- NOTE | 2020-05-10 07:53 | P.CONPHA_ITS ---
[facility] Pharmacy VTE Monitoring - Patient Demographics Admission date: 05/09/20 Report Date: 05/10/20 Time: 07:53 Allergies/Adverse Reactions: Patient Allergies No Known Allergies Allergy (Verified 05/10/20 00:09) Height: 1.8 m Weight: 81.72 kg Patient Problems: Current Active Problems Hx of cancer of lung (Acute) ST elevation [place] (STEMI) (Acute) Elevated blood pressure reading with diagnosis of hypertension (Acute) CKD (chronic kidney disease) stage 3, GFR 30-59 ml/min (Acute) COPD (chronic obstructive pulmonary disease) (Acute) - VTE Risk Labs: VTE Related Lab Results Hgb 17.2 g/dL (14.1-18.0) 05/09/20 18:50 Hct 50.2 % (42.0-52.0) 05/09/20 18:50 Plt Count 206 K/mm3 (142-424) 05/09/20 18:50 BUN 27 mg/dl (9-20) H 05/09/20 18:50 Creatinine 1.80 mg/dl (0.66-1.25) H 05/09/20 18:50 Estimated Creat Clear 37 mL/min (50-200) 05/09/20 18:50 Was VTE Risk Assessment Performed: Yes VTE Score: 3 VTE Risk Level: Low Risk - Prophylaxis VTE Prophylaxis Ordered?: Yes Types of VTE Prophylaxis: TEDS Knee High Location of Applied Device: Bilateral Lower Extremeties
--- NOTE | 2020-05-10 08:44 | HMH.HP ---
*Admission Date: 05/09/20 <Tiffanie Medina 05/10/20 08:54> *Chief complaint: chest pain <Tiffanie Medina 05/10/20 08:54> *History of present illness: Mr. Morris is an 80-year-old male who was sitting at home last night when when he began having pain and pressure all across his chest that radiated down his left arm. He became short of breath and diaphoretic. He presented to the emergency room and his EKG revealed evidence of lateral ST elevation [place]. He was taken directly to the cardiac Campus Recruiting Coordinator. He underwent coronary stenting of both the LAD and circumflex artery with notation of chronic RCA occlusion. He was admitted for observation after stenting. This morning he states his chest pressure has resolved. He does state about every 10 to 12 breaths, he then gets short of breath. He states he had a neb treatment last night and it seemed to make this worse. He was unable to rest throughout the night. <Tiffanie Medina 05/10/20 08:54> [facility] History I have reviewed the patient's past medical history: Yes <Tiffanie Medina 05/10/20 08:54> Medical History: Reports:: Aneurysm (AAA with stent placement), Cancer (hx of Lung CA), Chronic Obstructive Pulmonary Disease (COPD), Gastroesophageal Reflux Disease(GERD) Denies:: Diabetes Mellitus Type 1, Diabetes Mellitus Type 2, MRSA <Tiffanie Medina 05/10/20 08:54> *Have you ever received a pneumonia vaccine?: No <Tiffanie Medina 05/10/20 08:54> *Have you received a flu vaccine this season?: No <Tiffanie Medina 05/10/20 08:54> Other Medical History: Reports: Hypothyroidism, Thyroid Disease, Other (Tremor) <Tiffanie Medina 05/10/20 08:54> Other Surgeries: Yes: Coronary Stent, Other (AAA - stent, Cyst removed right arm, Chemo for Lung CA) <Tiffanie Medina 05/10/20 08:54> Amputation: No <Tiffanie Medina 05/10/20 08:54> Fractures: No <Tiffanie Medina 05/10/20 08:54> - *Social History Smoking Status: Former smoker <Tiffanie Medina 05/10/20 08:54> Alcohol Intake: never <Tiffanie Medina 05/10/20 08:54> Substance Use Type: denies use <Tiffanie Medina 05/10/20 08:54> *Occupational Status:: retired <Tiffanie Medina 05/10/20 08:54> Housing: house <Tiffanie Medina 05/10/20 08:54> Household Members: spouse <Tiffanie Medina 05/10/20 08:54> *Travel in the last 8 weeks: None <Tiffanie Medina 05/10/20 08:54> Family Hx:: Hyperlipidemia, Hypertension <Tiffanie Medina 05/10/20 08:54> Review of Systems - Constitutional Reports weakness, Denies fever(s) <Tiffanie Medina 05/10/20 08:54> - Eyes Denies blurry vision, Denies double vision <Tiffanie Medina 05/10/20 08:54> - ENT Denies nasal congestion, Denies sore throat <Tiffanie Medina 05/10/20 08:54> - *Cardiovascular Reports chest pain, Reports excessive sweating, Reports shortness of breath, Reports radiating jaw, neck or arm pain <Tiffanie Medina 05/10/20 08:54> - *Respiratory Reports shortness of breath, Denies cough <Tiffanie Medina 05/10/20 08:54> - *Gastrointestinal Denies abdominal pain, Denies loose stools, Denies nausea, Denies vomiting <Tiffanie Medina 05/10/20 08:54> - *Genitourinary Denies difficulty urinating, Denies painful urination <Tiffanie Medina 05/10/20 08:54> - *Musculoskeletal Denies joint pain <Tiffanie Medina 05/10/20 08:54> - *Neurologic Reports weakness, Denies headache(s), Denies dizziness <Tiffanie Medina 05/10/20 08:54> Meds Home Medications Medication Instructions Recorded Confirmed Type albuterol sulfate 90 mcg/actuation 2 puff INHALATION QIDP PRN 02/17/18 05/10/20 History aerosol inhaler Metoclopramide HCl [Reglan 5mg 5 mg PO ACHS 08/12/18 05/10/20 History Tablet] polyethylene glycoL 3350 [Miralax 17 gm PO DAILY 08/12/18 05/10/20 History 17gm Packet] Cholecalciferol (Vitamin D3) 1,000 unit PO DAILY 05/10/20 05/10/20 History [Vitamin D3 1,000 Unit Cap] Esomeprazole Magnesium [Nexium] 20 mg PO DAILY 05/10/20 05/10/20 History Fluticasone/Umeclidin/Vilanter 1
--- NOTE | 2020-05-10 19:56 | PC.NURSE ---
PT IS SITTING UP IN THE CHAIR. NO COMPLAINTS OF CHEST PAIN OR DISCOMFORT. PT STATED EARLIER IN THE SHIFT THAT HE DID FEEL SOMEWHAT SOA. O2 SATURATION HAS MAINTAINED 92-98% T/O THE SHIFT ON RA. PT HAS BEEN UP AMBULATING AROUND THE ROOM AND TO THE BATHROOM. DRESSING TO THE RT RADIAL C/D/I. EATING AND DRINKING WELL. VSS. REPORT HANDOFF TO NETO DE LEON RN.
[2020-05-11] VITALS (9 sets, daily range): BP systolic 95–150; BP diastolic 61–99; PULSE 60–87; RESP 16–20; TEMP 36.4–36.6; O2SAT 93–98; BMI 24.9
--- NOTE | 2020-05-11 01:42 | PC.NURSE ---
He is A&Ox4. He reports difficulty sleeping. He admits to taking naps during the day and some at night. He reports SOA but does not want to wear the PRN oxygen for comfort; therefore, he is on RA. NSR on telemetry. He denies pain.
[2020-05-11 04:26] LABS: Chloride 98 mmol/L (98-107); Sodium 135 mmol/L (136-145)
[2020-05-11 04:27] LABS: Potassium 4.5 mmoL/L (3.5-5.1)
[2020-05-11 04:29] LABS: Blood Urea Nitrogen 27 mg/dl (9-20); Creatinine Clearance Estimated 43 mL/min (50-200); Estimated Glomerular Filt Rate 42 ml/min (>60); GFR (African American) 51 ML/MIN (>60)
[2020-05-11 04:30] LABS: Anion Gap 11.5 mEq/L (5-15); Calcium 9.8 mg/dl (8.4-10.2); Carbon Dioxide 30 mmol/L (22.0-30.0); Glucose 117 mg/dl (74-100)
--- NOTE | 2020-05-11 08:35 | HMH.ACPN2 ---
Internal Medicine - PN: Subj *Date: 05/11/20 *Time: 08:35 Interval history: He did not sleep well again last night for no particular reason. He would like to go home. He still complains of intermittent shortness of breath stating that about every 10 breaths, he feels like he cannot catch a full breath. No significant cough. He is tolerating activity in the room. No chest pain. Exam Vital signs and Labs for Last 24 Hours: Temp Pulse Resp BP Pulse Ox 97.5 F L 85 16 143/79 H 97 05/11/20 04:00 05/11/20 06:00 05/11/20 00:00 05/11/20 06:00 05/11/20 06:00 Laboratory Results - last 24 hr 05/11/20 04:05: Sodium 135 L, Potassium 4.5, Chloride 98, Carbon Dioxide 30, Anion Gap 11.5, BUN 27 H, Creatinine 1.60 H, Estimated Creat Clear 43, Estimated GFR 42 L, Est GFR ( Amer) 51 L, Glucose 117 H, Calcium 9.8 I & O for Last 24 hours: Intake & Output 05/08/20 05/09/20 05/10/20 05/11/20 11:59 11:59 11:59 11:59 Intake Total 330 / 330 360 / 360 Output Total 600 / 600 300 / 300 Balance -270 / -270 60 / 60 Weight 180 lb 2.588 oz 178 lb 3 oz Narrative: He is sitting up in the chair. Alert and in no distress. He has some scattered wheezes throughout his lungs. Heart is regular. Extremities no edema. Echocardiogram shows an estimated ejection fraction of 30%. Assessment and Plan (1) Elevated blood pressure reading with diagnosis of hypertension Status: Acute Category: Medical Code(s): I10 - Essential (primary) hypertension (2) ST elevation [place] (STEMI) Status: Acute Qualifiers: Involved coronary artery: unspecified coronary artery Qualified Code(s): I21.3 - ST elevation (STEMI) myocardial infarction of unspecified site Category: Medical Code(s): I21.3 - ST elevation (STEMI) myocardial infarction of unspecified site (3) Hx of cancer of lung Status: Acute Category: Medical Code(s): Z85.118 - Personal history of other malignant neoplasm of bronchus and lung (4) CKD (chronic kidney disease) stage 3, GFR 30-59 ml/min Status: Acute Category: Medical Code(s): N18.30 - Chronic kidney disease, stage 3 unspecified (5) COPD (chronic obstructive pulmonary disease) Status: Acute Category: Medical Code(s): J44.9 - Chronic obstructive pulmonary disease, unspecified (6) Ischemic cardiomyopathy Status: Acute Category: Medical Code(s): I25.5 - Ischemic cardiomyopathy - Assessment and plan all Dx Assessment and Plan for all problems:: Continue per orders. Awaiting direction from cardiology service regarding possible need for LifeVest and disposition plans.
--- NOTE | 2020-05-11 14:43 | PC.NURSE ---
THIS MORNING STATED PT WOULD NEED A LIFE VEST BEFORE DISCHARGE. ALL PAPER WORK WAS FILLED OUT AND FAXED. PT WAS APPROVED FOR VEST. ERIKA LAWS ARRIVED AT 1445 TO FIT AND GIVE EDUCATION ON THE VEST.
--- NOTE | 2020-05-11 17:28 | PC.NURSE ---
PT HAS BEEN FITTED AND EDUCATED ON LIFE VEST. PT STATES HE IS MORE THAN READY TO GO HOME. NOTIFIED. PT HAS NOT COMPLAINED OF CP OR SOA. AMBULATES TO THE BATHROOM AND AROUND THE ROOM. EATING AND DRINKING WELL. VSS. ALL MEDICATIONS CALLED INTO [facility].
--- NOTE | 2020-05-11 19:24 | HMH.DCSUM ---
General - General Admission date:: 05/09/20 <Obi Pop - 06/03/20 15:48> 05/09/20 <Tiffanie Medina - 05/11/20 19:27> Discharge date: 05/11/20 <Tiffanie Medina - 05/11/20 19:27> HPI HPI: Mr. Morris is an 80-year-old male who was sitting at home last night when when he began having pain and pressure all across his chest that radiated down his left arm. He became short of breath and diaphoretic. He presented to the emergency room and his EKG revealed evidence of lateral ST elevation [place]. He was taken directly to the cardiac Rn Internal Medicine. He underwent coronary stenting of both the LAD and circumflex artery with notation of chronic RCA occlusion. He was admitted for observation after stenting. This morning he states his chest pressure has resolved. He does state about every 10 to 12 breaths, he then gets short of breath. He states he had a neb treatment last night and it seemed to make this worse. He was unable to rest throughout the night. <Tiffanie Medina - 05/11/20 19:27> Hospital Course Hospital Course: The patient was started on Brilinta and aspirin and cardiology wanted him to be started on beta-blockers and SHAKIRA inhibitors once hemodynamically stable. They also ordered an echocardiogram and recommended cardiac rehabilitation. He did complain of some indigestion following his cath and Tums were ordered. In terms of his lung cancer, he completed a course of chemotherapy, radiation therapy, and immunotherapy continues to follow with [facility] [place]. He just had a CT recently and was told everything looked fine and he would follow-up in 6 months. His echo came back showing an EF of 30%. He continued to complain of some intermittent shortness of breath stating that about every 10 breaths he felt like he could not catch his breath. He was able to tolerate activity in his room and had no chest pain. His case was discussed with Dr. Jacobson who felt he would need a LifeVest due to his low ejection fraction. He was fitted for this and was eager to go home and stable for discharge. <Tiffanie Medina - 05/11/20 19:27> Objective Vital signs: Temp Pulse Resp BP Pulse Ox 97.8 F 76 20 102/70 L 94 L 05/11/20 14:00 05/11/20 14:00 05/11/20 14:00 05/11/20 14:00 05/11/20 14:00 <Obi Pop - 06/03/20 15:48> Temp Pulse Resp BP Pulse Ox 97.8 F 76 20 102/70 L 94 L 05/11/20 14:00 05/11/20 14:00 05/11/20 14:00 05/11/20 14:00 05/11/20 14:00 <Tiffanie Medina - 05/11/20 19:27> Narrative: He is sitting up in the chair. Alert and in no distress. He has some scattered wheezes throughout his lungs. Heart is regular. Extremities no edema. <Tiffanie Medina - 05/11/20 19:27> Results Labs on day of discharge: Labs from last 24 hours 05/11/20 04:05 Sodium 135 L Potassium 4.5 Chloride 98 Carbon Dioxide 30 Anion Gap 11.5 BUN 27 H Creatinine 1.60 H Estimated Creat Clear 43 Estimated GFR 42 L Est GFR ( Amer) 51 L Glucose 117 H Calcium 9.8 <Tiffanie Medina - 05/11/20 19:27> DS: Diagnosis - Discharge Diagnosis (1) Elevated blood pressure reading with diagnosis of hypertension Status: Acute (2) ST elevation [place] (STEMI) Status: Acute (3) Hx of cancer of lung Status: Acute (4) CKD (chronic kidney disease) stage 3, GFR 30-59 ml/min Status: Acute (5) COPD (chronic obstructive pulmonary disease) Status: Acute (6) Ischemic cardiomyopathy Status: Acute <Tiffanie Medina - 05/11/20 19:24> (1) Elevated blood pressure reading with diagnosis of hypertension Status: Acute (2) ST elevation [place] (STEMI) Status: Acute (3) Hx of cancer of lung Status: Acute (4) CKD (chronic kidney disease) stage 3, GFR 30-59 ml/min Status: Acute (5) COPD (chronic obstructive pulmonary disease) Status: Chronic (6) Ischemic cardiomyopathy Status: Chronic <Obi Pop James - 06/03/20 15:48>
--- NOTE | 2020-05-14 11:31 | HMH.PHACLD ---
Sipke Morris has received discharge medication counseling on the following medications: PATIENT WAS DISCHARGED WITH ASPIRIN 81 MG DAILY, ATORVASTATIN 40 MG HS, CLOPIDOGREL 75 MG DAILY, IRBESARTAN 75 MG DAILY, AND PROPRANOLOL 40 MG BID.
== END 2020-05-11 17:43 | disposition home or self-care (01) ==
LOC: ER 19:04 → SDC 19:05 → 2ND 19:11
PROVIDERS: Internal Medicine; Physician Assistant; Admitting Provider Family Medicine; Emergency Provider Emergency Medicine; PCP Family Medicine; Visit Provider Family Medicine
DX: I21.3 ST elevation (STEMI) myocardial infarction of unspecified site (principal); I12.9 Hypertensive chronic kidney disease with stage 1 through stage 4 chronic kidney disease, or unspecified chronic kidney disease; N18.30 Chronic kidney disease, stage 3 unspecified; I25.5 Ischemic cardiomyopathy; Z87.891 Personal history of nicotine dependence; Z85.118 Personal history of other malignant neoplasm of bronchus and lung; E03.9 Hypothyroidism, unspecified; Z79.899 Other long term (current) drug therapy
CPT/HCPCS: 36415; 71045; 80048; 84484; 85025; 85347; 86328; 92928; 93005; 93306; 93458; 96374; 99152; 99153; 99284; C1725; C1769; C1876; C9600; G0378; J1644; Q9967

== ENCOUNTER → 2020-07-04 08:37 | Outpatient (CLI) | payer MEDICARE, SELFPAY | PROVIDERS: PCP Family Medicine; Visit Provider Physician Assistant | DX: I25.10 Atherosclerotic heart disease of native coronary artery without angina pectoris (principal) | CPT/HCPCS: 93308 ==

== ENCOUNTER → 2020-08-06 10:05 | Outpatient (CLI) | payer MEDICARE, SELFPAY | PROVIDERS: PCP Family Medicine; Visit Provider Physician Assistant | DX: I25.10 Atherosclerotic heart disease of native coronary artery without angina pectoris (principal); I25.5 Ischemic cardiomyopathy; I21.3 ST elevation (STEMI) myocardial infarction of unspecified site; I49.1 Atrial premature depolarization; R94.31 Abnormal electrocardiogram [ECG] [EKG] | CPT/HCPCS: 93308 ==

== ENCOUNTER → 2020-08-16 07:46 | Outpatient (CLI) | payer MEDICARE, SELFPAY ==
--- NOTE | 2020-08-16 07:47 | US_ITS ---
PROCEDURE: US GALLBLADDER CLINICAL INDICATION: GERD, rebound tenderness in RUQ COMPARISON: No exams were available for comparison FINDINGS: Pancreas: Unremarkable/Not well seen Liver: Unremarkable. There is appropriate direction of blood flow within a non dilated portal vein. Right kidney: Unremarkable appearing. No hydronephrosis. Gallbladder: No stones are evident. There is no gallbladder wall thickening. Common duct is normal in diameter. IMPRESSION: Negative gallbladder ultrasound. No stones evident. Dictated by: Juliano Adams MD 08/16/2020 09:31 Juliano Adams MD in [place] 08/16/2020 09:31
== END ==
PROVIDERS: PCP Family Medicine; Visit Provider Nurse Practitioner Family
DX: K21.9 Gastro-esophageal reflux disease without esophagitis (principal); R10.829 Rebound abdominal tenderness, unspecified site
CPT/HCPCS: 76705

== ENCOUNTER 2020-08-26 14:51 | Outpatient (RCR) | payer MEDICARE, SELFPAY | END 2020-08-26 23:59 | disposition home or self-care (01) | LOC: PT 14:51 | PROVIDERS: Visit Provider Urology | DX: I25.10 Atherosclerotic heart disease of native coronary artery without angina pectoris (principal); I25.5 Ischemic cardiomyopathy; E78.49 Other hyperlipidemia; I10 Essential (primary) hypertension; Z95.5 Presence of coronary angioplasty implant and graft | CPT/HCPCS: 93798 ==

== ENCOUNTER → 2020-12-10 13:24 | Outpatient (CLI) | payer MEDICARE, SELFPAY ==
--- NOTE | 2020-12-10 13:31 | XR_ITS ---
PROCEDURE: XR FINGER LT MIN 2V CLINICAL INDICATION: PAIN OF FINGER OF LT HAND COMPARISON: No exams were available for comparison FINDINGS: Osteoarthritic changes PIP joint 5th digit 4 x 2 mm calcific density along the distal and dorsal aspect the middle phalanx which could represent an avulsed osteophyte displaced proximally by 3 mm. Other findings:None. IMPRESSION: Suspect avulsed osteophyte at the DIP joint. Please correlate with patient's area of pain and tenderness. Osteoarthritis of the PIP joint Dictated by: Juliano Adams MD 12/10/2020 14:23 Juliano Adams MD in [place] 12/10/2020 14:23
== END ==
PROVIDERS: PCP Family Medicine; Visit Provider Family Medicine
DX: M79.645 Pain in left finger(s) (principal)
CPT/HCPCS: 73140

== ENCOUNTER → 2021-05-05 11:04 | Outpatient (CLI) | payer MEDICARE, SELFPAY ==
[2021-05-05 11:47] LABS: Basophils # 0.1 K/mm3 (0-0.2); Basophils % 1.3 % (0.1-2.0); Eosinophils # 0.2 K/mm3 (0.0-0.4); Eosinophils % 2.1 % (0.1-12.0); Hematocrit 43.2 % (42.0-52.0); Lymphocytes % 13.3 % (10-50); Mean Corpuscular HGB Conc 32.5 g/dL (31.8-35.4); Mean Corpuscular Hemoglobin 27.4 pg (27.0-31.2); Mean Corpuscular Volume 84.5 fl (80-94); Mean Platelet Volume 8.4 fl (7.4-10.4); Monocytes # 0.4 K/mm3 (0.1-1.0); Monocytes % 5.3 % (1.7-9.3); Neutrophils # 6.1 K/mm3 (1.8-7.8); Platelet Count 249 K/mm3 (142-424); Red Blood Count 5.11 M/mm3 (4.60-6.20); Red Cell Distribution Width 14.5 % (11.5-17.5); White Blood Count 7.9 K/mm3 (4.8-10.8)
== END ==
PROVIDERS: PCP Family Medicine; Visit Provider Family Medicine
DX: Z20.822 Contact with and (suspected) exposure to COVID-19 (principal)
CPT/HCPCS: 36415; 85025; C9803; U0003; U0005

== ENCOUNTER → 2021-05-12 09:54 | Outpatient (CLI) | payer MEDICARE, SELFPAY | PROVIDERS: PCP Family Medicine; Visit Provider Nurse Practitioner | DX: Z20.822 Contact with and (suspected) exposure to COVID-19 (principal) | CPT/HCPCS: C9803; U0003; U0005 ==

== ENCOUNTER → 2022-09-10 10:18 | Outpatient (POV) | payer MEDICARE, SELFPAY ==
--- NOTE | 2022-09-10 10:30 | EXP.PAIN.OV ---
HPI Data of Consult Patient: new to practice Consult date: 09/10/22 Requesting Physician: Mayra Perry APRN Consult Narrative Reason for consult: Left shoulder pain History of present illness: Mr. Morris is a 82 year old male who presents today as a new patient. He is a self-referral. His does go to our clinic. Today he rates his pain a 5 out of 10. He states his pain is all around his left shoulder. Patient states this has been going on for approximately 2 to 3 years and does describe it as a dull aching sensation that is worse with increased activity. He states it will occasionally radiate up his neck. Patient has been seeing physical therapy who is done dry needling and heat which has provided some additional improvement. Patient does use Aleve as needed along with Biofreeze for minimal improvement. He does state that the pain is better when he walks with his head down or in times when he can lay down and rest. Patient does have a significant history of cardiac stents and cancer. He does state that in the past he has gone to [place] for injective therapy however they did an injection in his cervical spine and this was not the area that he was having pain. CC: Mayra Perry APRN [facility] Disclaimer: The information contained in this section may have been updated after the patient was seen, as this information can be updated by other users. Social History Smoking Status: Former smoker alcohol intake: never substance use type: denies use current occupational status: retired Travel in the last 8 weeks: [place] the [place] household members: spouse housing: house Review of Systems Review of Systems Review of systems:: pertinent systems reviewed and negative unless documented below Review of systems (narrative): Review of Systems: General: No recent weight changes, no fever, no sleep disturbances Respiratory: No cough, no shortness of air, no recurring pulmonary infections Cardiovascular/peripheral vascular: No chest pain, no palpitations, no edema, no shortness of breath Gastrointestinal: No new onset incontinence, normal bowel movements reported Genitourinary: No new onset incontinence Musculoskeletal: Left shoulder pain Psychiatric: [Normal mood/affect] Neurological: [Denies weakness in extremities], [denies balance issues] Meds Home Medications and Allergies Home Medications Medication Instructions Recorded Confirmed Type albuterol sulfate 90 mcg/actuation 2 puff inhalation QIDP PRN 02/17/18 11/10/21 History aerosol inhaler (Ventolin HFA) breathing cholecalciferol (vitamin D3) 25 1,000 unit PO DAILY Supplement 05/10/20 05/19/22 History mcg (1,000 unit) capsule levothyroxine 75 mcg tablet 75 mcg PO DAILY THYROID 05/10/20 05/19/22 History atorvastatin 40 mg tablet 40 mg PO HS #30 tabs 05/11/20 05/19/22 Rx isosorbide mononitrate 30 mg 30 mg PO DAILY #30 tabs 05/11/20 05/19/22 Rx tablet,extended release 24 hr pantoprazole 40 mg tablet,delayed 40 mg PO DAILY #30 tabs 12/18/20 11/10/21 Rx release (Protonix) zolpidem 5 mg tablet 10 mg PO HSP PRN Sleep 05/26/21 05/19/22 History clopidogrel 75 mg tablet 75 mg PO DAILY #90 tabs 04/13/22 05/19/22 Rx propranolol 40 mg tablet 40 mg PO DAILY BLOOD PRESSURE/HEART 05/19/22 05/19/22 History New Prescriptions to Start Prescriptions: Allergies Allergy/AdvReac Type Severity Reaction Status Date / Time No Known Allergies Allergy Verified 05/19/22 13:21 Objective Narrative: Physical Exam: General: Alert and oriented x3, no acute distress, pleasant and cooperative Lungs: Respirations even and unlabored, symmetrical chest expansion Eyes: PERRL Musculoskeletal: Flexion and extension of cervical [spine] somewhat guarded secondary to pain, [antalgic gait noted] point tenderness noted along left trapezius muscles Neurological: Speech clear, no gross sensory deficit [place] in
[2022-09-10 11:32] VITALS: BMI 25.7
== END ==
PROVIDERS: Visit Provider Nurse Practitioner Family
DX: M50.10 Cervical disc disorder with radiculopathy, unspecified cervical region (principal); M25.512 Pain in left shoulder; M79.18 Myalgia, other site; M48.02 Spinal stenosis, cervical region
CPT/HCPCS: 99202; G0463

== ENCOUNTER 2022-09-15 13:01 | Day surgery (SDC) | payer MEDICARE, SELFPAY ==
[2022-09-15 13:16] VITALS: BP 113/77; PULSE 44; RESP 18; TEMP 36.3; O2SAT 91; BMI 24.4
--- NOTE | 2022-09-15 13:35 | P.PCN_ITS ---
Procedure Date: 09/15/22 Time: 13:40 Anesthesiologist:: Juanjose Manuel CRNA Complications:: None Pre-procedure Diagnosis:: Myofascial pain left trapezius. Left rhomboid. Left cervical paraspinous muscle pain. Post-procedure Diagnosis:: Same. Indications for Procedure:: Patient is a very pleasant 82-year-old male that comes our clinic today with left trapezius pain. Left distal cervical paraspinous muscle pain. Procedure Details:: Details of procedure explained to the patient. The patient taken procedure room placed in sitting position. The area over the distal left cervical paraspinous muscle as well as left trapezius muscle and left rhomboid muscle was cleaned using chlorhexidine as a cleansing solution. Using a 25-gauge inch and a half needle and a solution containing 0.25% Marcaine +1% lidocaine and 40 mg of Depo- Medrol 3 cc of injectate was injected after negative aspiration into the left distal cervical paraspinous muscle. 3 separate areas of the left trapezius muscle was injected with 3 cc at each position. 1 area of the left rhomboid was injected using 3 cc of the solution. Patient tolerated procedure without difficulty. There are no complications. Plan and Disposition:: Patient was discharged without incident.
[2022-09-15 13:37] VITALS: BP 106/68; PULSE 65; RESP 18; O2SAT 92
== END 2022-09-15 13:37 | disposition home or self-care (01) ==
PROVIDERS: PCP Family Medicine; Visit Provider Nurse Anesthetist, Certified Registered
DX: M79.18 Myalgia, other site (principal); M50.10 Cervical disc disorder with radiculopathy, unspecified cervical region; M48.02 Spinal stenosis, cervical region; M25.512 Pain in left shoulder
CPT/HCPCS: 20552; J1040

== ENCOUNTER → 2022-10-07 13:22 | Outpatient (POV) | payer MEDICARE, SELFPAY ==
[2022-10-07 13:46] VITALS: BP 114/69; PULSE 59; RESP 18; O2SAT 97; BMI 24.4
--- NOTE | 2022-10-07 14:04 | A.OFFVIS_ITS ---
[facility] Pain Management SOAP Note Subjective:: Patient is a pleasant 82-year-old male who presents today for follow-up of trigger point injections of his left cervical paraspinous muscle and left trapezius and rhomboid muscle. We are currently treating the patient for degenerative disc disease of cervical spine with cervical radiculopathy symptoms, left shoulder pain, myofascial pain, cervical spinal stenosis. Today he rates his pain a 2 out of 10. He states that he has had significant improvement of his pain symptoms. He states that all of his pain is gone primarily and will only occasionally have random pains if he sits in certain positions. Patient denies any new trauma or injury. Patient denies any change to location or type of pain he experiences. Patient is on Ambien 10 mg nightly from an outside provider. His Marcos is [phone]. Its been reviewed and appropriate. Review of Systems: General: No recent weight changes, no fever, no sleep disturbances Respiratory: No cough, no shortness of air, no recurring pulmonary infections Cardiovascular/peripheral vascular: No chest pain, no palpitations, no edema, no shortness of breath Gastrointestinal: No new onset incontinence, normal bowel movements reported Genitourinary: No new onset incontinence Musculoskeletal: Shoulder pain, neck pain Psychiatric: [Normal mood/affect] Neurological: [Denies weakness in extremities], [denies balance issues] Objective:: Physical Exam: General: Alert and oriented x3, no acute distress, pleasant and cooperative Lungs: Respirations even and unlabored, symmetrical chest expansion Eyes: PERRL Musculoskeletal: Flexion and extension of cervical [spine] somewhat guarded secondary to pain, [antalgic gait noted] Neurological: Speech clear, no gross sensory deficit Assessment:: Degenerative disc disease of cervical spine with cervical radiculopathy symptoms, cervical spinal stenosis, myofascial pain, left shoulder pain Plan:: Patient has had significant improvement following his trigger point injections and does not require any additional injective therapy. Patient will return to clinic in 1 month for reevaluation of symptoms and plan of care. Patient has been instructed to contact the clinic with any concerns before the next appointment. Dr. Diego has reviewed this note and agrees with this plan of care. This note was dictated using voice recognition software and make contain errors or omissions. [facility] Disclaimer: The information contained in this section may have been updated after the patient was seen, as this information can be updated by other users. Medical History CAD (coronary artery disease) CKD (chronic kidney disease) COPD (chronic obstructive pulmonary disease) HLD (hyperlipidemia) HTN (hypertension) Hypothyroidism Lung cancer Surgical History History of cardiac cath Family History (Updated 09/15/22 @ 13:17 by Raquel Grant RN) Other No significant family history Social History Smoking Status: Former smoker alcohol intake: never substance use type: denies use current occupational status: retired Travel in the last 8 weeks: None household members: spouse housing: house
== END ==
PROVIDERS: PCP Family Medicine; Visit Provider Nurse Practitioner Family
DX: M50.10 Cervical disc disorder with radiculopathy, unspecified cervical region (principal); M48.02 Spinal stenosis, cervical region; M79.10 Myalgia, unspecified site; M25.512 Pain in left shoulder
CPT/HCPCS: 99212; G0463

== ENCOUNTER → 2022-11-05 11:27 | Outpatient (POV) | payer MEDICARE, SELFPAY ==
[2022-11-05 11:43] VITALS: BP 124/72; PULSE 55; RESP 18; O2SAT 98; BMI 24.3
--- NOTE | 2022-11-05 11:50 | A.OFFVIS_ITS ---
[facility] Pain Management SOAP Note Subjective:: Patient is a pleasant 82-year-old male who presents today for 1 month follow-up. We are currently treating the patient for degenerative disc disease of cervical spine with cervical radiculopathy symptoms, left shoulder pain, myofascial pain, cervical spinal stenosis. Today he rates his pain a 2 out of 10. Patient denies any new trauma or injury. Patient did previously have trigger point injections of his left cervical paraspinous muscles and left trapezius and rhomboid muscles back in August that provided significant relief and he states he still continues to get additional improvement. He does state that he has noticed more pain in his neck along the upper left side however it is only more prominent when he has been out working and mowing the yard. He does state it is still very tolerable and not like what it was prior. Patient is currently managed with Ambien 10 mg nightly from an outside provider. His Marcos is [id number]. Its been reviewed and appropriate. Review of Systems: General: No recent weight changes, no fever, no sleep disturbances Respiratory: No cough, no shortness of air, no recurring pulmonary infections Cardiovascular/peripheral vascular: No chest pain, no palpitations, no edema, no shortness of breath Gastrointestinal: No new onset incontinence, normal bowel movements reported Genitourinary: No new onset incontinence Musculoskeletal: Neck pain Psychiatric: [Normal mood/affect] Neurological: [Denies weakness in extremities], [denies balance issues] Objective:: Physical Exam: General: Alert and oriented x3, no acute distress, pleasant and cooperative Lungs: Respirations even and unlabored, symmetrical chest expansion Eyes: PERRL Musculoskeletal: Flexion and extension of cervical [spine] somewhat guarded secondary to pain, [antalgic gait noted] Neurological: Speech clear, no gross sensory deficit Assessment:: Degenerative disc disease of cervical spine with cervical radiculopathy symptoms, left shoulder pain, myofascial pain, cervical spinal stenosis Plan:: Patient continues to get significant relief following his trigger point injections and does not require any additional injective therapy at this time. I will order the patient a compounding cream during today's visit. Patient will follow-up in clinic in 3 months for reevaluation of symptoms and plan of care. Patient has been instructed to contact the clinic with any concerns before the next appointment. Dr. Diego has reviewed this note and agrees with this plan of care. This note was dictated using voice recognition software and make contain errors or omissions. [facility] Disclaimer: The information contained in this section may have been updated after the patient was seen, as this information can be updated by other users. Medical History CAD (coronary artery disease) CKD (chronic kidney disease) COPD (chronic obstructive pulmonary disease) HLD (hyperlipidemia) HTN (hypertension) Hypothyroidism Lung cancer Surgical History History of cardiac cath Family History (Updated 09/15/22 @ 13:17 by Raquel Grant RN) Other No significant family history Social History Smoking Status: Former smoker alcohol intake: never substance use type: denies use current occupational status: retired Travel in the last 8 weeks: None household members: spouse housing: house
== END ==
PROVIDERS: PCP Family Medicine; Visit Provider Nurse Practitioner Family
DX: M50.10 Cervical disc disorder with radiculopathy, unspecified cervical region (principal); M48.02 Spinal stenosis, cervical region; M25.512 Pain in left shoulder; M79.10 Myalgia, unspecified site
CPT/HCPCS: 99212; G0463

== ENCOUNTER → 2022-12-23 09:54 | Outpatient (POV) | payer MEDICARE, SELFPAY ==
--- NOTE | 2022-12-23 10:29 | EXP.PAIN.SOA ---
[facility] Pain Management SOAP Note Subjective:: Patient is a pleasant 82-year-old male who presents today for follow-up. We are currently treating the patient for degenerative disc disease of cervical spine with cervical radiculopathy symptoms, myofascial pain, cervical spinal stenosis. Today he rates his pain a 6 out of 10. Patient denies any new trauma or injury or any change to location or type of pain he experiences. He does state that he is starting to have worsening pain around the left side of his neck and into his shoulder that is painful to touch. Patient does state it interferes with his ability perform activities of daily living such as cooking or cleaning or even range of motion of his neck. Patient states he is planning a family vacation coming up in January to go to [place] and would like to be in tiptop shape if possible. Patient has previously had trigger point injections that did provide upwards of 80 to 100% improvement in the past. He is interested in repeating these injections. He is currently managed with compounding cream from our office and Ambien 10 mg at night from an outside provider. His Marcos is [phone]. Its been reviewed and appropriate. Review of Systems: General: No recent weight changes, no fever, no sleep disturbances Respiratory: No cough, no shortness of air, no recurring pulmonary infections Cardiovascular/peripheral vascular: No chest pain, no palpitations, no edema, no shortness of breath Gastrointestinal: No new onset incontinence, normal bowel movements reported Genitourinary: No new onset incontinence Musculoskeletal: Left-sided neck pain, left shoulder pain Psychiatric: [Normal mood/affect] Neurological: [Denies weakness in extremities], [denies balance issues] Objective:: Physical Exam: General: Alert and oriented x3, no acute distress, pleasant and cooperative Lungs: Respirations even and unlabored, symmetrical chest expansion Eyes: PERRL Musculoskeletal: Flexion and extension of cervical [spine] somewhat guarded secondary to pain, [antalgic gait noted] point tenderness noted at left cervical paraspinous, left trapezius and left rhomboid muscles Neurological: Speech clear, no gross sensory deficit Assessment:: Degenerative disc disease of cervical spine with cervical radiculopathy symptoms, cervical spinal stenosis, myofascial pain Plan:: Patient is experiencing worsening pain in his neck along the left side with limited range of motion. Patient did have point tenderness noted at his left cervical paraspinous, left trapezius and left rhomboid muscles. I have discussed with the patient that he may benefit from repeat trigger point injections at these locations. Patient reviewed risk and benefits and would like to proceed forward with this plan of care. Patient will be scheduled for trigger point injections of his left cervical paraspinous, left trapezius and left rhomboid muscles. Patient has been instructed to contact the clinic with any concerns before the next appointment. Dr. Diego has reviewed this note and agrees with this plan of care. This note was dictated using voice recognition software and make contain errors or omissions. [facility] Disclaimer: The information contained in this section may have been updated after the patient was seen, as this information can be updated by other users. Medical History CAD (coronary artery disease) CKD (chronic kidney disease) COPD (chronic obstructive pulmonary disease) HLD (hyperlipidemia) HTN (hypertension) Hypothyroidism Lung cancer Surgical History History of cardiac cath Family History (Updated 09/15/22 @ 13:17 by Raquel Grant RN) Other No significant family history Social History Smoking Status: Former smoker alcohol intake: never substance use type: d
[2022-12-23 11:47] VITALS: BP 123/80; PULSE 63; RESP 18; O2SAT 97; BMI 24.8
== END ==
PROVIDERS: PCP Family Medicine; Visit Provider Nurse Practitioner Family
DX: M50.10 Cervical disc disorder with radiculopathy, unspecified cervical region (principal); M48.02 Spinal stenosis, cervical region; M79.10 Myalgia, unspecified site
CPT/HCPCS: 99212; G0463

== ENCOUNTER 2023-01-05 08:25 | Day surgery (SDC) | payer MEDICARE, SELFPAY ==
[2023-01-05 08:35] VITALS: BP 157/83; PULSE 61; RESP 18; TEMP 36.9; O2SAT 95; BMI 30.9
[2023-01-05 08:50] VITALS: BP 136/87; PULSE 57; RESP 18; O2SAT 97
[2023-01-05 08:51] VITALS: BP 136/87; PULSE 57; RESP 18; O2SAT 97
--- NOTE | 2023-01-05 08:58 | EXP.PAIN.PRO ---
Procedure Date: 01/05/23 Time: 08:50 Anesthesiologist:: Juanjose Manuel CRNA Complications:: None Pre-procedure Diagnosis:: Myofascial pain left posterior cervical paraspinous muscle. Left trapezius muscle. Post-procedure Diagnosis:: Same. Indications for Procedure:: Very pleasant 82-year-old male that comes our clinic today for a left cervical paraspinous trigger point injection. Also, left trapezius muscle trigger point injection. Patient complains of pain in these areas that he describes as constant, dull, aching. He reports he has responded very well to trigger point injections in these areas in the past. Procedure Details:: Details of procedure explained to the patient. The patient taken procedure room placed in sitting position. The area over the distal left cervical paraspinous muscle as well as left trapezius muscle and left rhomboid muscle was cleaned using chlorhexidine as a cleansing solution. Using a 25-gauge inch and a half needle and a solution containing 0.25% Marcaine +1% lidocaine and 40 mg of Depo-Medrol 3 cc of injectate was injected after negative aspiration into the left distal cervical paraspinous muscle. 3 separate areas of the left trapezius muscle was injected with 3 cc at each position. 1 area of the left rhomboid was injected using 3 cc of the solution. Patient tolerated procedure without difficulty. There are no complications. Plan and Disposition:: Patient was discharged without incident.
[2023-01-05 09:02] VITALS: BP 131/87; PULSE 56; RESP 20
--- NOTE | 2023-01-05 09:29 | EXP.PAIN.PRO ---
Procedure Date: 01/05/23 Time: 08:55 Anesthesiologist:: Juanjose Manuel CRNA Complications:: None Pre-procedure Diagnosis:: Myofascial pain left posterior cervical paraspinous muscle as well as left trapezius muscle Post-procedure Diagnosis:: Same Indications for Procedure:: Very pleasant 82-year-old male that comes our clinic today for repeat left inferior cervical paraspinous muscle pain as well as left trapezius pain. Patient has had this myofascial pain in the past. This pain is responded well to trigger point injections in these areas in the past. He rates his pain 7/10. Procedure Details:: Details of the procedure explained to the patient. Patient taken to procedure room placed in sitting position. The area over the inferior left posterior cervical paraspinous muscle as well as left trapezius muscle was cleaned using chlorhexidine as a cleansing solution. Using a 25-gauge inch and half needle and a solution containing 0.25% Marcaine +1% lidocaine and 40 mg of Depo-Medrol 2 cc was injected after negative aspiration at the inferior left posterior cervical paraspinous muscle, 4 cc was injected after negative aspiration in 2 separate areas of the left trapezius muscle. Patient tolerated procedure without difficulty. There are no complications. Plan and Disposition:: Patient was discharged without incident.
== END 2023-01-05 09:03 | disposition home or self-care (01) ==
PROVIDERS: PCP Family Medicine; Visit Provider Nurse Anesthetist, Certified Registered
DX: M79.18 Myalgia, other site (principal)
CPT/HCPCS: 20553; J1040

== ENCOUNTER 2024-07-17 12:15 | Outpatient (CLI) | payer MEDICARE, SELFPAY ==
--- NOTE | 2024-07-17 12:35 | XR_ITS ---
FINAL REPORT CLINICAL HISTORY: COUGH FINDINGS: 2 views of the chest were obtained . The heart is normal in size. There is left hilar prominence. There is a vague opacity in the left lung. A moderate left pleural effusion is present. Right lung is clear. There is no pneumothorax. Osseous structures are unremarkable. IMPRESSION: Abnormal left thorax. Recommend chest CT, ideally with contrast. Reviewed, Interpreted and Dictated by Fidelia Bautista MD Transcribed by Merly Wade Authenticated and [facility]
[2024-07-17 12:51] LABS: Reticulocyte % (Auto) 1.9 % (0.9-3.2)
[2024-07-17 13:23] LABS: Erythrocyte Sedimentation Rate 12 mm/hr (0-20)
[2024-07-17 13:29] LABS: Albumin Level 4.2 g/dl (3.5-5.0); Chloride 100 mmol/L (98-107)
[2024-07-17 13:30] LABS: Potassium 4.8 mmoL/L (3.5-5.1); Sodium 136 mmol/L (136-145)
[2024-07-17 13:32] LABS: Alanine Aminotransferase 18 U/L (12-78); Amylase 48 U/L (30-110); Anion Gap 8.8 mEq/L (5-15); Aspartate Amino Transferase 26 U/L (17-59); Blood Urea Nitrogen 18 mg/dl (9-20); Carbon Dioxide 32 mmol/L (22.0-30.0); Estimated Glomerular Filt Rate 45 ml/min (>60); GFR (African American) 54 ML/MIN (>60)
[2024-07-17 13:33] LABS: Albumin/Globulin Ratio 1.8 (1.1-1.8); Alkaline Phosphatase 110 U/L (38-126); Bilirubin,Total 0.8 mg/dl (0.2-1.3); Calcium 9.7 mg/dl (8.4-10.2); Globulin 2.3 g/dL (1.3-3.2); Glucose 112 mg/dl (74-100); Iron 110 ug/dL (49-181); Lipase 203 U/L (23-300); Total Protein,Serum 6.5 g/dl (6.3-8.2)
[2024-07-17 13:40] LABS: C-Reactive Protein 4.9 mg/L (0-4)
[2024-07-17 13:43] LABS: Total Iron Binding Capacity 314 ug/dL (261-462)
[2024-07-17 14:04] LABS: Thyroid Stimulating Hormone 2.76 uIU/mL (0.465-4.68)
== END 2024-07-17 23:59 | disposition home or self-care (01) ==
LOC: LAB 12:18
PROVIDERS: PCP Family Medicine; Visit Provider Family Medicine
DX: N18.32 Chronic kidney disease, stage 3b (principal); D64.9 Anemia, unspecified; R10.13 Epigastric pain; R63.4 Abnormal weight loss; R05.9 Cough, unspecified
CPT/HCPCS: 36415; 71046; 80053; 82150; 83540; 83550; 83690; 84443; 85044; 85651; 86140

== ENCOUNTER 2024-07-22 23:18 | Emergency (ER) | payer MEDICARE, SELFPAY ==
[2024-07-22 23:22] VITALS: BP 169/93; PULSE 84; RESP 20; TEMP 36.8; O2SAT 92; BMI 23.0
--- NOTE | 2024-07-22 23:27 | XR_ITS ---
PROCEDURE INFORMATION: Exam: XR Chest Exam date and time: 07/22/2024 11:48 PM Age: 84 years old Clinical indication: Other: Lightheaded, sweaty, indigestion TECHNIQUE: Imaging protocol: Radiologic exam of the chest. Views: 2 views. COMPARISON: CR XR CHEST 2V 17/07/2024 12:37 FINDINGS: Lungs: There is the appearance of a large left lung cavitary mass. There is left perihilar architectural distortion with mild opacities. Pleural spaces: Small left pleural effusion, unchanged. Heart/Mediastinum: Borderline cardiomegaly. Coronary artery calcifications. Vasculature: Vascular calcifications. Bones/joints: Unremarkable. IMPRESSION: 1. There is the appearance of a large left lung cavitary mass. There is left perihilar architectural distortion with mild opacities. This is similar in appearance to most recent chest radiograph. Chest CT with contrast is recommended to exclude malignancy. 2. Small left pleural effusion, unchanged.
--- NOTE | 2024-07-22 23:27 | ECG_ITS ---
APPROVED REPORT Exam: Resting ECG HR:79 bpm ECG Measurements Heart Rate 79 AXES MT 192 P 85 QRSd 92 QRS -44 QT 388 T 91 QTc 423 Conclusion SINUS RHYTHM LEFT AXIS DEVIATION [QRS AXIS < -30] LOW QRS VOLTAGE IN EXTREMITY LEADS [QRS DEFLECTION < 0.5 mV IN LIMB LEADS] POSSIBLE ANTERIOR MYOCARDIAL INFARCTION , PROBABLY OLD [30 ms Q WAVE IN V3/V4, OR R < 0.2 mV IN V4] INFERIOR MYOCARDIAL INFARCTION , OF INDETERMINATE AGE [40+ ms Q WAVE AND/OR ST/T ABNORMALITY IN II/aVF] Poor R wave progression, no STEMI Electronically signed by : AMBAR ANTON, 07/23/2024 06:44:58
[2024-07-22 23:30] VITALS: PULSE 79
--- NOTE | 2024-07-22 23:30 | ED_ITS ---
Discharge Plan Disposition Patient Disposition: Home, Self-Care Condition: Good Prescriptions Prescriptions: No Action propranolol 40 mg tablet 40 mg PO DAILY famotidine 40 mg tablet 40 mg PO DAILY PRN Patient Comments: TAKE 1 TABLET BY MOUTH DAILY AT BEDTIME NEEDED esomeprazole magnesium [Nexium] 20 mg capsule,delayed release(DR/EC) 20 mg PO DAILY Trelegy Ellipta 100-62.5-25 mcg blister with device 1 inh inhalation DAILY levothyroxine 75 MCG tablet 75 mcg PO DAILY cholecalciferol (vitamin D3) 1,000 UNIT capsule 1,000 unit PO DAILY zolpidem 5 mg tablet 10 mg PO HSP PRN (Reason: Sleep) atorvastatin 40 MG tablet 40 mg PO HS isosorbide mononitrate 30 MG tablet extended release 24 hr 30 mg PO DAILY clopidogrel 75 mg tablet 75 mg PO DAILY Referrals Follow up/Referrals: Gabriel Dickey MD [Primary Care Provider] - See instructions Yann Linder MD [Staff Physician] - See instructions (Lung mass, hx lung Ca in remission x5 years, wants to do care here) Activity Restrictions/Add. Instructions Additional Instructions/Restrictions: You were evaluated in the ER and are appropriate for discharge at this time. Continue taking all home medications as previously prescribed. Make an appointment with your primary care doctor for reevaluation in 2 to 3 days. 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 Please call their office for close follow-up since you had this episode. Call your cancer team and get close follow-up regarding this lung mass. Return to the ER with new, worsening, or otherwise concerning symptoms. Clinical Impressions Clinical Impression: Lung mass, Indigestion, Lightheadedness Print Language Print Language: Romanian Discharge ED Provider: Sonido Weathers General Chief Complaint: Chest Pain Stated Complaint: chest pain, neck pain Time Seen by Provider: 07/22/24 23:27 Mode of Arrival: Ambulatory Source of Information: Patient Description of Symptoms (Recalled from ER Triage Doc. by RN): Pt describes episode of indegestion and feeling faint, as well as being diaphoretic History of Present Illness HPI narrative: 84-year-old male with history of previous OH, multiple stents, hyperlipidemia, COPD, CKD, hypothyroid, reflux, history of lung cancer believed to be in remission presents to the ER with complaints of a 30-minute episode of sweating, lightheadedness, indigestion. Symptoms spontaneously resolved. Patient reports he did not have any chest pain or difficulty breathing, he did not have any nausea or vomiting. He reports he took Ex-Lax earlier since he had not had a bowel movement in 2 days but has not had any problems with that. He denies any abdominal pain. He never had any numbness, tingling, weakness, vision changes, and did not syncopized. He has not had fevers, chills, or other symptoms of being ill recently. No other complaints or concerns. Patient reports being completely asymptomatic and feeling back to baseline at this time. Family at bedside reports he has an upcoming CT a shadow spot in his lungs and they are going to check and see if it could be malignant. Related Data Home Medications ?Medication ?Instructions ?Recorded ?Confirmed cholecalciferol (vitamin D3) 25 1,000 unit PO DAILY Supplement 05/10/20 05/25/24 mcg (1,000 unit) capsule levothyroxine 75 mcg tablet 75 mcg PO DAILY THYROID 05/10/20 05/25/24 zolpidem 5 mg tablet 10 mg PO HSP PRN Sleep 05/26/21 05/25/24 propranolol 40 mg tablet 40 mg PO DAILY BLOOD PRESSURE/HEART 05/19/22 05/25/24 atorvastatin 40 mg tablet 40 mg PO HS Cholesterol 09/10/22 05/25/24 clopidogrel 75 mg tablet 75 mg PO DAILY Blood thinner 09/10/22 05/25/24 isosorbide mononitrate 30 mg 30 mg PO DAILY Chest pain 09/10/22 05/25/24 tablet,extended release 24 hr esomeprazole magnesium 20 mg 20 mg PO DAILY 05/26/23 05/25/24 capsule,delayed release (Nexium) fluticasone fur. 100 mcg-umeclid 1 inh inhalation DAILY 05/26/23 05/25/24 62.5 mcg-vilant 25 mcg inhalat.powder (Trelegy Ellipta) famotidine 40 mg tablet 40 mg PO DAILY PRN 05/25/24 05/25/24 Allergies Allergy/AdvReac Type Severity Reaction Status Date / Time No Known Allergies Allergy Verified 05/25/24 13:06 [facility] Disclaimer: The information contained in this section may have been updated after the patient was seen, as this information can be updated by other users. Medical History HLD (hyperlipidemia) CAD (coronary artery disease) Hypothyroidism Lung cancer COPD (chronic obstructive pulmonary disease) CKD (chronic kidney disease) HTN (hypertension) Surgical History History of cardiac cath Family History Other No significant family history Social History Smoking Status: Current every day smoker alcohol intake: never substance use type: denies use current occupational status: other Travel in the last 8 weeks: None household members: spouse housing: house Have you lived/traveled outside US in past 30 days?: No Contact w/someone who lives/traveled outside US past 30 days?: No Exposure to someone with infectious disease in past 14 days?: No Do you have a fever (greater than 100.4 F or 38 C)?: No Have you tested positive for COVID-19: No Exposed to someone with COVID-19 in past 14 days?: No Do you have a sore throat?: No Do you have a cough?: No Do you have any weakness?: No Do you have any diarrhea?: No Are you experiencing any unusual bleeding?: No Do you have any muscle aches/pain?: No Do you have any abdominal pain?: No Are you experiencing loss of taste or smell?: No Other Medical History Have you received the Flu Vaccine for this season: No Have you received the Pneumonia Vaccine: Yes ROS Obtained: Yes Systems reviewed as appropriate & no additional complaints except as documented Per HPI Physical Exam General General appearance: alert and in no apparent distress Head Head exam: atraumatic and normocephalic Eye Eye exam: Present PERRL and EOMI ENT ENT exam: Present mucous membranes moist Neck Neck exam: Present normal inspection and full ROM Chest Chest inspection: Present symmetric chest wall rise Respiratory Respiratory exam: Present normal lung sounds bilaterally and other (Saturating 95% on room air); Absent respiratory distress, wheezes or stridor Cardiovascular Cardiovascular exam: Present regular rate and normal rhythm Abdominal Exam Abdominal exam: Present soft; Absent distention or tenderness Comment: Small soft, reducible umbilical hernia with no overlying skin changes or tenderness Extremities Exam Extremities exam: Present full ROM; Absent edema or calf tenderness Neurological Exam Neurological exam: Present alert, oriented X3 and normal gait; Absent motor sensory deficit Psychiatric Psychiatric exam: Present normal affect and normal mood Skin Skin exam: Present warm and dry HEART Score HEART Score HEART Score assessment performed?: Yes History (anamnesis): Slightly suspicious ECG: Non-specific disturbance Age: >65 years Risk factors: Atherosclerosis history Troponin: </= normal limit HEART Score: 5 Critical Care Critical Care Time Critical Care Time: No Medical Decision Making Medical Records Medical records reviewed: Yes I reviewed the patient's medical records. MR Comment: Most recent cardiology visit from May 2024 demonstrates patient was evaluated for his 1 year follow-up. He was down 7 pounds at that time. Note demonstrates patient has stents in the LAD and circumflex. Plan was for outpatient labs, follow-up with GI for GERD patient deferred the offer for [facility] at that time. Marcos Inquiry Pt receiving controlled substance: No Vital Signs Vital Signs: 07/22/24 23:22 07/22/24 23:30 07/22/24 23:39 Temperature 98.2 F Temperature Source Oral Pulse Rate 79 84 Pulse Rate [Right Brachial] 84 Respiratory Rate 20 Blood Pressure 144/89 H Blood Pressure [Right Arm] 169/93 H Blood Pressure Mean [Right Arm] 118 Blood Pressure Source Blood Pressure Source [Right Arm] Automatic Cuff Blood Pressure Position Blood Pressure Position [Right Arm] Sitting 02 Sat by Pulse Oximetry 92 L 95 Oxygen Delivery Method Room Air 07/22/24 23:45 07/23/24 00:02 07/23/24 00:14 Temperature Temperature Source Pulse Rate 79 84 83 Pulse Rate [Right Brachial] Respiratory Rate Blood Pressure 127/82 Blood Pressure [Right Arm] Blood Pressure Mean [Right Arm] Blood Pressure Source Blood Pressure Source [Right Arm] Blood Pressure Position Blood Pressure Position [Right Arm] 02 Sat by Pulse Oximetry 96 96 96 Oxygen Delivery Method 07/23/24 01:01 07/23/24 01:15 07/23/24 01:30 Temperature Temperature Source Pulse Rate 77 85 79 Pulse Rate [Right Brachial] Respiratory Rate Blood Pressure 141/92 H 127/78 Blood Pressure [Right Arm] Blood Pressure Mean [Right Arm] Blood Pressure Source Blood Pressure Source [Right Arm] Blood Pressure Position Blood Pressure Position [Right Arm] 02 Sat by Pulse Oximetry 95 94 L 95 Oxygen Delivery Method Room Air 07/23/24 02:00 07/23/24 02:15 07/23/24 02:31 Temperature Temperature Source Pulse Rate 85 84 86 Pulse Rate [Right Brachial] Respiratory Rate Blood Pressure 132/83 150/92 H Blood Pressure [Right Arm] Blood Pressure Mean [Right Arm] Blood Pressure Source Blood Pressure Source [Right Arm] Blood Pressure Position Blood Pressure Position [Right Arm] 02 Sat by Pulse Oximetry 95 96 96 Oxygen Delivery Method Room Air 07/23/24 02:46 Temperature 98.2 F Temperature Source Oral Pulse Rate 84 Pulse Rate [Right Brachial] Respiratory Rate 20 Blood Pressure 150/92 H Blood Pressure [Right Arm] Blood Pressure Mean [Right Arm] Blood Pressure Source Automatic Cuff Blood Pressure Source [Right Arm] Blood Pressure Position Sitting Blood Pressure Position [Right Arm] 02 Sat by Pulse Oximetry Oxygen Delivery Method Room Air Lab Data Labs: Lab Results 07/22/24 23:37: WBC 6.9, RBC 5.31, Hgb 14.2, Hct 43.7, MCV 82.3, MCH 26.7 L, MCHC 32.5, RDW 16.7, Plt Count 217, MPV 10.5 H, Neut % (Auto) 70.3, Lymph % (Auto) 19.6, Motley % (Auto) 5.5, Eos % (Auto) 3.6, Baso % (Auto) 0.7, Neut # (Auto) 4.9, Lymph # (Auto) 1.4, Motley # (Auto) 0.4, Eos # (Auto) 0.3, Baso # (Auto) 0.1, PT 10.4, INR 0.92, D-Dimer 1.28 H, Sodium 137, Potassium 4.1, Chloride 98, Carbon Dioxide 38 H, Anion Gap 5.1, BUN 20, Creatinine 1.40 H, Estimated Creat Clear 43, Estimated GFR 48 L, Est GFR ( Amer) 58 L, G lucose 159 H, Calcium 9.6, Total Bilirubin 0.9, AST 31, ALT 19, Alkaline Phosphatase 107, Troponin I < 0.01, NT-Pro-B Natriuret Pep 291, Total Protein 7.1, Albumin 4.4, Globulin 2.7, Albumin/Globulin Ratio 1.6, TSH 2.77, Free T4 1.69, HCV Ab MOE w/Rflx PCR Qn Negative, HIV Ag/Ab Combo Qual Negative 07/23/24 02:07: Troponin I < 0.01 07/22/24 23:37 07/22/24 23:37 Response Orders (Tests/Meds): ED MEDICATIONS Generic Name Dose Route Start Last Admin Trade Name Freq PRN Reason Stop Dose Admin Nitroglycerin 0.4 mg 07/22/24 23:27 Nitroglycerin 0.4mg Sl Tablet SL 07/23/24 23:27 Q5MINP PRN Chest Pain Sodium Chloride 10 ml 07/23/24 01:17 07/23/24 01:19 Sodium Chloride 0.9% 10ml Syr (Rad Only) IV 08/22/24 01:16 10 ml NEEDED PRN Administration Maintain IV Site Discontinued Medications Generic Name Dose Route Start Last Admin Trade Name Freq PRN Reason Stop Dose Admin Aspirin 324 mg 07/22/24 23:27 07/22/24 23:35 Aspirin 81mg Chewable Tablet PO 07/22/24 23:28 324 mg ONCE ONE Administration Belladonna Alkaloids 60 ml 07/23/24 00:28 07/23/24 00:30 Belladonna Alkaloids 60 Ml Ml PO 07/23/24 00:29 60 ml ONCE ONE Administration Lactated Ringer's 1,000 mls @ 999 mls/hr 07/22/24 23:27 07/22/24 23:36 Lactated Ringer's 1000 Ml Bag IV 07/23/24 00:27 999 mls/hr .Q1H1M ONE Administration Iopamidol 70 ml 07/23/24 01:17 07/23/24 01:19 Iopamidol-370 (76%);100ml Bottle IV 07/23/24 01:18 70 ml ONCE ONE Administration Sodium Chloride 40 ml 07/23/24 01:17 07/23/24 01:18 0.9 % Sodium Chloride 50 Ml Vial IV 07/23/24 01:18 40 ml ONCE ONE Administration ORDERS Category Date Time Status CT angio chest PE protocol Stat Cat Scan 07/23/24 00:44 Completed XR chest 2V Stat Exams 07/22/24 23:27 Completed Complete Blood Count Auto Diff Stat Lab 07/22/24 23:37 Completed Comprehensive Metabolic Panel Stat Lab 07/22/24 23:37 Completed D-Dimer Stat Lab 07/22/24 23:37 Completed Free T4 (Free Thyroxine) Stat Lab 07/22/24 23:37 Completed HIV Combo Routine Lab 07/22/24 23:37 Completed Hepatitis C Ab Qual. W/ RFX Routine Lab 07/22/24 23:37 Completed NT Pro Brain Natriuretic Pep. Stat Lab 07/22/24 23:37 Completed Prothrombin Time INR Stat Lab 07/22/24 23:37 Completed TSH [Thyroid Stimulating Hormone] Stat Lab 07/22/24 23:37 Completed Troponin I Q3H Lab 07/23/24 02:07 Completed Troponin I Q3H Lab 07/23/24 05:30 Ordered Troponin I Stat Lab 07/22/24 23:37 Ordered MDM Narrative Medical Decision Narrative: In summary, this 84-year-old male with comorbidities described in the HPI which may not be at goal therapy presents to the emergency department today with sweating, lightheadedness, indigestion lasting approximately 30 minutes which spontaneously resolved. On initial evaluation patient is hemodynamically stable, afebrile, GCS 15, saturating well on room air, cardiopulmonary exam at this time is benign, he is resting comfortably and completely asymptomatic. Abdominal exam benign, remainder of exam also reassuring. Differential diagnosis includes but is not limited to ACS, PE, arrhythmia, malignancy, electrolyte abnormality, dehydration, with patient's history of GERD I did also consider a flareup of this. Based on these concerns, I ordered serum labs, cardiac workup, chest x- ray. ECG personally interpreted demonstrates normal sinus rhythm, rate 79, left axis deviation, normal IN and QTc, poor R wave progression, no STEMI. Patient received IV fluids for treatment. Labs personally reviewed demonstrate no leukocytosis or anemia, normal platelets, PT/INR normal, CMP nonactionable, patient's kidney dysfunction is actually improved from previous, initial troponin undetectably low less than 0.01. D-dimer is elevated at 1.28, increased concern for possible PE. Patient was sent for CTA PE. XR personally interpreted demonstrates concern for left lung mass, small left pleural effusion. See radiology read for final interpretation CTAP personally interpreted does not demonstrate large PE, there are concerning changes in the left lung for possible malignancy. See radiology read for final interpretation. Radiology read did comment on concern for possible infiltrate/infectious changes, patient has no leukocytosis, no fever, no cough, no evidence of pneumonia clinically. I do not believe he requires treatment for pneumonia. Patient and family were updated on the findings. They are appropriately upset about the discovery of the mass in the left lung after patient has been clear from cancer for multiple years. They understand that he still requires biopsy and further workup to evaluate what it is. They would prefer to have workup performed here at [facility] if possible due to patient and his 's advancing age and more difficulty traveling to [place]. I placed a referral to Dr. Linder for this purpose. Repeat troponin was also undetectably low. Patient has been ambulating around the ER. I believe patient is appropriate for discharge at this time and I am reassured by his workup. Family is comfortable with this plan. No changes in prescriptions. Patient was given instructions on symptomatic management, follow up instructions, and return precautions for the emergency department. Patient indicated understanding and was discharged in stable condition.
[2024-07-22] MEDS: ASPIRIN 81MG CHEWABLE TABLET 324 MG PO (23:35)
[2024-07-22] MEDS: LACTATED RINGERS 1000ML 1,000 ML 999 ML IV (23:36)
[2024-07-22 23:39] VITALS: BP 144/89; PULSE 84; O2SAT 95
[2024-07-22 23:45] VITALS: PULSE 79; O2SAT 96
[2024-07-22 23:50] LABS: Basophils # 0.1 K/mm3 (0-0.2); Basophils % 0.7 % (0.1-2.0); Eosinophils # 0.3 K/mm3 (0.0-0.4); Eosinophils % 3.6 % (0.1-12.0); Hematocrit 43.7 % (42.0-52.0); Hemoglobin 14.2 g/dL (14.1-18.0); Lymphocytes # 1.4 K/mm3 (0.7-4.5); Lymphocytes % 19.6 % (10-50); Mean Corpuscular HGB Conc 32.5 g/dL (31.8-35.4); Mean Corpuscular Hemoglobin 26.7 pg (27.0-31.2); Mean Corpuscular Volume 82.3 fl (80-94); Mean Platelet Volume 10.5 fl (7.4-10.4); Monocytes # 0.4 K/mm3 (0.1-1.0); Monocytes % 5.5 % (1.7-9.3); Neutrophils # 4.9 K/mm3 (1.8-7.8); Neutrophils % 70.3 % (37.0-80.0); Platelet Count 217 K/mm3 (142-424); Red Blood Count 5.31 M/mm3 (4.60-6.20); Red Cell Distribution Width 16.7 % (11.5-17.5); White Blood Count 6.9 K/mm3 (4.8-10.8)
[2024-07-23] VITALS (9 sets, daily range): BP systolic 127–150; BP diastolic 78–92; PULSE 77–86; RESP 20; TEMP 36.8; O2SAT 94–96
[2024-07-23 00:05] LABS: INR 0.92 (0.9-1.1); Prothrombin Time 10.4 seconds (10.1-12.5)
[2024-07-23 00:11] LABS: NT Pro Brain Natriuretic Pep. 291 pg/mL (0-450)
[2024-07-23 00:15] LABS: Alanine Aminotransferase 19 U/L (12-78); Albumin Level 4.4 g/dl (3.5-5.0); Albumin/Globulin Ratio 1.6 (1.1-1.8); Alkaline Phosphatase 107 U/L (38-126); Anion Gap 5.1 mEq/L (5-15); Aspartate Amino Transferase 31 U/L (17-59); Bilirubin,Total 0.9 mg/dl (0.2-1.3); Blood Urea Nitrogen 20 mg/dl (9-20); Calcium 9.6 mg/dl (8.4-10.2); Carbon Dioxide 38 mmol/L (22.0-30.0); Chloride 98 mmol/L (98-107); Creatinine Clearance Estimated 43 mL/min (50-200); Estimated Glomerular Filt Rate 48 ml/min (>60); GFR (African American) 58 ML/MIN (>60); Globulin 2.7 g/dL (1.3-3.2); Glucose 159 mg/dl (74-100); Potassium 4.1 mmoL/L (3.5-5.1); Sodium 137 mmol/L (136-145); Total Protein,Serum 7.1 g/dl (6.3-8.2); Troponin I < 0.01 ng/ml (0.00-0.034)
[2024-07-23 00:25] LABS: Free T4 (Free Thyroxine) 1.69 ng/dl (0.78-2.19)
[2024-07-23 00:26] LABS: D-Dimer 1.28 ug/mL (0.0-0.5)
[2024-07-23] MEDS: BELLADONNA ALKALOIDS 60 ML ML PO (00:30)
[2024-07-23 00:32] LABS: Thyroid Stimulating Hormone 2.77 uIU/mL (0.465-4.68)
--- NOTE | 2024-07-23 00:44 | CT_ITS ---
PROCEDURE INFORMATION: Exam: CTA Chest With Contrast Exam date and time: 07/23/2024 12:59 AM Age: 84 years old Clinical indication: Abnormal findings; Abnormal diagnostic tests; Elevated d-dimer; Other: Presyncope; Additional info: Dimer+, presyncope TECHNIQUE: Imaging protocol: Computed tomographic angiography of the chest with contrast. Exam focused on the arteries. 3D rendering (Not supervised by radiologist): MIP and/or 3D reconstructed images were created by the technologist. Radiation optimization: All CT scans at this facility use at least one of these dose optimization techniques: automated exposure control; mA and/or kV adjustment per patient size (includes targeted exams where dose is matched to clinical indication); or iterative reconstruction. Contrast material: ISOUVE 370; Contrast volume: 70 ml; Contrast route: INTRAVENOUS (IV); COMPARISON: CR XR CHEST 2V 22/07/2024 23:48 FINDINGS: Pulmonary arteries: No pulmonary emboli. Aorta: The aorta demonstrates severe atherosclerotic disease. Lungs: Bilateral apical scarring. Hyperexpansion of portions of the left lower lobe. Scattered nodular pulmonary opacities favored to be related to infection or aspiration. Mild scarring and atelectasis in the lower lungs. Left mediastinal deviation related to left lung volume loss. There is a spiculated left perihilar mass measuring 4.8 x 2.2 cm on image 62 series 6. Part of the left upper lobe is collapsed with decreased enhancement of this parenchyma. Pleural spaces: Small left pleural effusion. Heart: Unremarkable. No cardiomegaly. No pericardial effusion. Lymph nodes: Unremarkable. No enlarged lymph nodes. Pancreas: Mild pancreatic atrophy. Intestine: Duodenal diverticulum. Bones/joints: Unremarkable. No acute fracture. Soft tissues: Unremarkable. Other findings: Stigmata of old granulomatous disease. IMPRESSION: 1. No pulmonary emboli. 2. Scattered nodular pulmonary opacities favored to be related to infection or aspiration. 3. There is a spiculated left perihilar mass measuring 4.8 x 2.2 cm on image 62 series 6. This is highly suspicious for malignancy. This should be amenable to bronchoscopic biopsy. Alternatively, consider PET-CT. 4. Part of the left upper lobe is collapsed with decreased enhancement of this parenchyma. Please exclude pneumonia clinically. 5. Small left pleural effusion.
[2024-07-23 00:57] LABS: HIV Combo NEGATIVE (Negative); Hepatitis C Ab Qual. W/ RFX NEGATIVE (Negative)
[2024-07-23] MEDS: 0.9 % SODIUM CHLORIDE 50 ML VIAL 40 ML IV (01:18)
[2024-07-23] MEDS: IOPAMIDOL-370 (76%);100ML BOTTLE 70 ML IV (01:19)
[2024-07-23] MEDS: SODIUM CHLORIDE 0.9% 10ML SYR (RAD ONLY) 10 ML IV (01:19)
[2024-07-23 02:39] LABS: Troponin I < 0.01 ng/ml (0.00-0.034)
== END 2024-07-23 02:50 | disposition home or self-care (01) ==
PROVIDERS: Emergency Provider Emergency Medicine; PCP Family Medicine
DX: R91.8 Other nonspecific abnormal finding of lung field (principal); K30 Functional dyspepsia; R42 Dizziness and giddiness; R61 Generalized hyperhidrosis; Z85.118 Personal history of other malignant neoplasm of bronchus and lung; Z72.0 Tobacco use
CPT/HCPCS: 71046; 71275; 80053; 83880; 84439; 84443; 84484; 85025; 85378; 85610; 86803; 87389; 93005; 96360; 99285; J7120; Q9967

== ENCOUNTER 2024-07-22 23:21 | Emergency (ER) | payer MEDICARE, SELFPAY ==
[2024-07-22 23:26] VITALS: BP 000/00; PULSE 0; RESP 0; TEMP -17.7; TEMP 0
[2024-07-23 00:05] VITALS: RESP 20; O2SAT 93; BMI 23.0
== END 2024-07-23 00:02 | disposition home or self-care (01) ==
LOC: ER 23:42
PROVIDERS: Emergency Provider Emergency Medicine; PCP Family Medicine
DX: M54.2 Cervicalgia (principal); K30 Functional dyspepsia; R61 Generalized hyperhidrosis; R07.9 Chest pain, unspecified
CPT/HCPCS: 99285